=== PATIENT | female | born 2000 | race Caucasian/White ===

== ENCOUNTER 2022-05-22 14:33 | Outpatient (CLI) | payer OTHER, SELFPAY ==
[2022-05-22 22:06] LABS: Aspartate Amino Transferase* 42 U/L (12-35); Bilirubin Direct* 0.3 mg/dL (0.0-0.5); Bilirubin Total* 0.5 mg/dL (0.1-1.5); Total Protein* 8.4 g/dL (6.0-8.3)
[2022-05-22 22:07] LABS: Alanine Aminotransferase* 33 U/L (4-35); Alkaline Phosphatase* 62 U/L (40-150); Lipase* 86 U/L (23-300)
[2022-05-22 22:12] LABS: HCG Qualitative Serum* Negative (Negative)
== END 2022-05-22 14:34 | disposition home or self-care (01) ==
PROVIDERS: Visit Provider Registered Nurse
DX: R10.9 Unspecified abdominal pain (principal)
CPT/HCPCS: 80076; 83690; 84703

== ENCOUNTER 2022-07-02 13:04 | Outpatient (CLI) | payer OTHER, SELFPAY ==
--- NOTE | 2022-07-02 13:00 | CRLHL7_ITS ---
For Patients: As a result of the Cures Act, medical imaging exams and procedure reports are released immediately into your electronic medical record. You may view this report before your referring provider. If you have questions, please contact your health care provider. INDICATION: First trimester scan, establish dates. COMPARISON: None. TECHNIQUE: Real-time velazquez-scale imaging of the pelvis was performed. FINDINGS: Sonographic imaging demonstrates a single living intrauterine gestation. The embryo demonstrates a regular cardiac rate measuring 174 beats per minute. The embryo`s crown-rump length measurement of 2.3 cm corresponds to a gestational age of 9 weeks 0 days with a sonographic due date of 02/04/2023. There is a normal-appearing yolk sac. There are no gross abnormalities noted within the embryo at this early state of development. The gestational sac has a normal appearance. There is no evidence of a perigestational hemorrhage. The amount of fluid within the sac appears appropriate for gestational age. The cervix is closed. The myometrium appears normal. The ovaries are of normal size. Corpus luteal cyst left ovary. There are no suspicious fluid collections noted in the cul-de-sac. IMPRESSION: Normal first trimester OB ultrasound exam. Gestational age calculated at 9 weeks and 0 days with a sonographic due date of 02/04/2023. Dictated by Good Weeks MD @ 07/03/2022 1:28:05 PM (Electronically Signed)
== END 2022-07-02 13:05 | disposition home or self-care (01) ==
LOC: US 13:05
PROVIDERS: PCP Registered Nurse; Visit Provider Physician Assistant
DX: Z34.91 Encounter for supervision of normal pregnancy, unspecified, first trimester (principal); Z3A.08 8 weeks gestation of pregnancy
CPT/HCPCS: 76801; 84443; 86592; 86703; 86762; 86787; 86803; 86850; 86900; 86901; 87086; 87340; 87491; 87591

== ENCOUNTER 2022-07-02 13:28 | Outpatient (CLI) | payer OTHER, SELFPAY ==
[2022-07-02 19:04] LABS: Chlamydia DNA Amplified* NOT DETECTED (No Detected); GC DNA Amplified* NOT DETECTED (No Detected)
== END 2022-07-02 13:29 | disposition home or self-care (01) ==
PROVIDERS: PCP Registered Nurse; Visit Provider Physician Assistant
DX: Z34.91 Encounter for supervision of normal pregnancy, unspecified, first trimester (principal); Z3A.09 9 weeks gestation of pregnancy
CPT/HCPCS: 84443; 86592; 86703; 86762; 86787; 86803; 86850; 86900; 86901; 87086; 87340; 87491; 87591

== ENCOUNTER 2022-08-15 16:16 | Emergency (ER) | payer OTHER, SELFPAY ==
[2022-08-15 16:22] VITALS: BP 109/71; PULSE 92; RESP 20; TEMP 35.9; O2SAT 100; BMI 31.6
--- NOTE | 2022-08-15 16:41 | ED_ITS ---
HPI - General Adult General Chief complaint: Headache/Migraine Stated complaint: Migraine, chest pain Time Seen by Provider: 08/15/22 16:24 History of Present Illness HPI narrative: Patient is a pleasant 22 white female who is about 15 weeks estimated gestational age . She ate with her at a [employer] last night went home developed a headache. She typically does not get migraines but has had them in the past several years ago. She has had mild photophobia mild [place] pain she also says she has some tingly hands tingly arms and she told the nurse she had chest pain she denied that to me denies any leg swelling or edema bleeding or clotting problems. She reports her has been going fairly well Related Data Home Medications Medication Instructions Recorded Confirmed calcium phosphate-vitamin D3 250 1 tab PO DAILY 07/30/22 08/15/22 mg calcium-250 unit chewable tablet ferrous gluconate 240 mg (27 mg 240 mg PO QDAY 07/30/22 08/15/22 iron) tablet (Ferate) magnesium 250 mg tablet 250 mg PO QDAY 07/30/22 08/15/22 prenat.vits,lino,[id number] 1 tab PO QDAY 07/30/22 08/15/22 Previous Rx's Medication Instructions Recorded escitalopram oxalate 10 mg tablet See Rx Instructions .Route 05/15/22 .COMPLEX #90 tabs Allergies Allergy/AdvReac Type Severity Reaction Status Date / Time No Known Drug Allergies Allergy Verified 07/30/22 08:57 Review of Systems Status of ROS: Reports: 6 or more systems reviewed and unremarkable except as noted in History and below PFSH PFS Medical History Constipation ?K59.00 - Constipation, unspecified (ICD-10) KEYSHAWN (generalized anxiety disorder) ?F41.1 - Generalized anxiety disorder (ICD-10) Idiopathic scoliosis (12/04/12) ?M41.20 - Other idiopathic scoliosis, site unspecified (ICD-10) Family History Mother PCOS (polycystic ovarian syndrome) Anxiety Dyslexia Other Thyroid disease Social History Narrative: . teaching assistant. Nonsmoker Smoking Status: Never smoker Do you use any of these nicotine containing products: None Second hand tobacco smoke exposure: No How often do you have a drink containing alcohol: never AUDIT-C Alcohol total score: 0 Non-prescribed substance use: denies use Little interest or pleasure in doing things: not at all Feeling down, depressed, or hopeless: not at all Exam Narrative: Exam Narrative: Objective: In general no apparent distress alert orient x3 noncyanotic no accessory muscles of respiration use no difficulty breathing talks in full and unlabored sentences Vital signs unremarkable O2 sat 100% on room air HEENT unremarkable no facial asymmetry mouth clear well hydrated neck is supple chest is clear no rales or wheezing heart rhythm regular heart murmur abdomen benign soft nontender extremities are no edema neurologic nonfocal. Patient denies any vaginal bleeding or contractions or cramping Const: Vital Signs, click to edit/add: Vital Signs - 24 hr 08/15/22 16:22 Temperature 96.7 F L Pulse Rate [Pulse Oximeter] 92 Respiratory Rate 20 Blood Pressure [Ri ght Upper Arm] 109/71 Pulse Oximetry 100 Oxygen Delivery Me thod Room Air Course Vital Signs Vital signs: Initial Vital Signs Temperature 96.7 F L 08/15/22 16:22 Temperature Source Temporal Artery Scan 08/15/22 16:22 Pulse Rate 92 08/15/22 16:22 Respiratory Rate 20 08/15/22 16:22 Blood Pressure 109/71 08/15/22 16:22 Blood Pressure Mean 83 08/15/22 16:22 Blood Pressure Position Sitting 08/15/22 16:22 Pulse Oximetry 100 08/15/22 16:22 Oxygen Delivery Method Room Air 08/15/22 16:22 Vital Signs Temperature 96.7 F L 08/15/22 16:22 Pulse Rate 92 08/15/22 16:22 Respiratory Rate 20 08/15/22 16:22 Blood Pressure 109/71 08/15/22 16:22 Pulse Oximetry 100 08/15/22 16:22 Oxygen Delivery Method Room Air 08/15/22 16:22 Temperature 96.7 F L 08/15/22 16:22 Pulse Rate 92 08/15/22 16:22 Respiratory Rate 20 08/15/22 16:22 Blood Pressure 109/71 08/15/22 16:22 Pulse Oximetry 100 08/15/22 16:22 Oxygen Delivery Method Room Air 08/15/22 16:22 Medical Decision Making [facility] Narrative Medical decision making narrative: 22-year-old white female but 15 weeks estimated gestational age with migrainous type headache. He patient does have a history of similar type headaches. I t hink at this point she has taken some Tylenol, would use some IV hydration with saline, she has had some mild nausea will give her Zofran 4 mg IV. Will check laboratory studies, and disposition pending findings or clinical response. She had her asthma comfortable plan at this point Addendum: The patient's CBC shows a normal white count hemoglobin 11.3 platelet count is [id number] her LFTs electrolytes are pending. She feels much better with the IV fluid and Zofran. She got most of a L. She reports her headache is better nausea is better. At this point a letter go home will review her labs as they return. Her blood pressure is as mentioned 109/71. Update Dr. Lynch in the next couple of days as conditions dictate, return to ED sooner problems or concerns. Lab Data Labs: Lab Results 08/15/22 Range/Units 17:20 WBC 9.48 (4.50-11.00) K/uL RBC 4.31 (4.00-5.20) m/uL Hgb 11.3 L (12.0-16.0) gm/dL Hct 34.0 (33.0-51.0) % MCV 79 L (80-100) fL MCH 26 (26-34) pg MCHC 33 (32-36) gm/dL RDW Coeff of Nelly 14.1 (11.5-15.5) % Plt Count 285 (140-440) K/uL Neut % (Auto) 78.0 H (42.0-72.0) % Lymph % (Auto) 14.8 L (20-44) % Whitfield % (Auto) 6.3 (0.0-11.0) % Eos % (Auto) 0.3 (0.0-7.0) % Baso % (Auto) 0.1 (0.0-3.0) % Neut # (Auto) 7.40 H (1.7-7.0) K/uL Lymph # (Auto) 1.40 (0.90-2.90) K/uL Whitfield # (Auto) 0.60 (0.00-0.90) K/UL Eos # (Auto) 0.03 (0.00-0.50) K/uL Baso # (Auto) 0.01 (0.00-0.30) K/uL Sodium 134 L (135-149) mmol/L Potassium 3.4 L (3.6-5.1) mmol/L Chloride 104 (96-114) mmol/L Carbon Dioxide 21 (20-32) mmol/L BUN 6 (5-24) mg/dL Creatinine 0.4 L (0.5-1.5) mg/dL Estimated Creat Clear 196.83 Estimated GFR 143 ml/min Glucose 85 (60-115) mg/dL Calcium 9.2 (8.4-10.6) mg/dL Total Bilirubin 0.3 (0.1-1.5) mg/dL Direct Bilirubin 0.1 (0.0-0.5) mg/dL AST 24 (12-35) U/L ALT 25 (4-35) U/L Alkaline Phosphatase 54 (40-150) U/L Total Protein 7.6 (6.0-8.3) g/dL Albumin 4.2 (3.3-5.0) g/dL Discharge Plan Discharge Clinical Impression: Migraine, Patient Disposition: Home w/ Parent or Adult Condition: Improved Additional Instructions: Rest, light activity, fluids, continue home medications, update OB tomorrow. Return to ED sooner problems concerns worsening. Activity Level: Light activity Discharge Diet: Regular Prescriptions: No Action prenat.vits,lino,bax-krux-nywhq Tablet 1 tab PO QDAY ferrous gluconate [Ferate] 240 mg (27 mg iron) tablet 240 mg PO QDAY magnesium 250 mg tablet 250 mg PO QDAY calcium phosphate-vitamin D3 250 mg calcium- 250 unit tablet,chewable 1 tab PO DAILY escitalopram oxalate 10 mg tablet See Rx Instructions .ROUTE .COMPLEX Qty: 90 0RF Dose Instruction: TAKE 1 TABLET DAILY Rx Instructions: TAKE 1 TABLET DAILY. Due for appointment in June for further refills Follow Up/Referrals: Sylvie Gupta [employer] [Staff Physician] - Stand Alone Forms: MyHealth Info Instructions
[2022-08-15] MEDS: 0.9 % SODIUM CHLORIDE 1000 ml 1,000 ML 6000 ML IV (17:23)
[2022-08-15] MEDS: ONDANSETRON 2 MG/ML inj 4 MG IVP (17:23)
[2022-08-15 17:37] LABS: Basophils Absolute Auto 0.01 K/uL (0.00-0.30); Basophils Percent Auto 0.1 % (0.0-3.0); Eosinophils Absolute Auto 0.03 K/uL (0.00-0.50); Eosinophils Percent Auto 0.3 % (0.0-7.0); Hemoglobin* 11.3 gm/dL (12.0-16.0); Immature Granulocytes Abs Auto 0.05 K/uL (0.00-0.30); Immature Granulocytes Pct Auto 0.5 %; Lymphocytes Percent Auto 14.8 % (20-44); Mean Corpuscular HGB Conc 33 gm/dL (32-36); Mean Corpuscular Hemoglobin 26 pg (26-34); Mean Corpuscular Volume 79 fL (80-100); Monocytes Percent Auto 6.3 % (0.0-11.0); Platelet Count* 285 K/uL (140-440); RDW Coefficient of Variation % 14.1 % (11.5-15.5); Red Blood Count 4.31 m/uL (4.00-5.20); White Blood Count* 9.48 K/uL (4.50-11.00)
[2022-08-15 17:46] LABS: Slide Review Reflex No
--- NOTE | 2022-08-15 17:47 | ED.NURSE ---
Nausea improved, pt given crackers
[2022-08-15 17:51] LABS: Albumin* 4.2 g/dL (3.3-5.0)
[2022-08-15 17:52] LABS: Chloride* 104 mmol/L (96-114); Potassium* 3.4 mmol/L (3.6-5.1); Sodium* 134 mmol/L (135-149)
[2022-08-15 17:54] LABS: Aspartate Amino Transferase* 24 U/L (12-35); Bilirubin Direct* 0.1 mg/dL (0.0-0.5); Bilirubin Total* 0.3 mg/dL (0.1-1.5); Total Protein* 7.6 g/dL (6.0-8.3)
[2022-08-15 17:55] LABS: Alanine Aminotransferase* 25 U/L (4-35); Alkaline Phosphatase* 54 U/L (40-150); Blood Urea Nitrogen* 6 mg/dL (5-24); Carbon Dioxide* 21 mmol/L (20-32); Creatinine* 0.4 mg/dL (0.5-1.5); Est. Creatinine Clearance* 196.83; Estimated Glomerular Filt Rate 143 ml/min
[2022-08-15 17:56] LABS: Calcium* 9.2 mg/dL (8.4-10.6); Glucose* 85 mg/dL (60-115)
== END 2022-08-15 18:10 | disposition home or self-care (01) ==
LOC: ED 17:38
PROVIDERS: Emergency Provider Family Medicine; PCP Physician Assistant Medical
DX: G43.909 Migraine, unspecified, not intractable, without status migrainosus (principal); Z3A.15 15 weeks gestation of pregnancy
CPT/HCPCS: 36415; 80048; 80076; 85025; 96374; 99284; J2405; J7030

== ENCOUNTER 2022-11-15 08:12 | Outpatient (CLI) | payer OTHER, SELFPAY | END 2022-11-15 08:13 | disposition home or self-care (01) | LOC: NFLDREF 11-17 18:38 | PROVIDERS: PCP Physician Assistant Medical; Referring Provider Physician Assistant Medical; Visit Provider Obstetrics & Gynecology | DX: Z34.93 Encounter for supervision of normal pregnancy, unspecified, third trimester (principal); Z3A.28 28 weeks gestation of pregnancy | CPT/HCPCS: 86592 ==

== ENCOUNTER 2022-12-25 07:30 | Outpatient (RCR) | payer OTHER, SELFPAY | END 2023-04-24 23:59 | disposition home or self-care (01) | PROVIDERS: PCP Physician Assistant Medical; Visit Provider Obstetrics & Gynecology | DX: O26.893 Other specified pregnancy related conditions, third trimester (principal); M25.559 Pain in unspecified hip; M54.50 Low back pain, unspecified; Z51.89 Encounter for other specified aftercare | CPT/HCPCS: 97110; 97140; 97162 ==

== ENCOUNTER 2023-01-09 10:02 | Outpatient (CLI) | payer OTHER, SELFPAY ==
[2023-01-09] VITALS (21 sets, daily range): BP systolic 122–134; BP diastolic 72–88; PULSE 74–101; RESP 16; TEMP 36.9; O2SAT 97–98
--- NOTE | 2023-01-09 11:35 | US_ITS ---
Patient: IZABELLA MASON Facility:?[facility] Patient ID:?[id number] Site Patient ID:?[id number]. Site :?[id number] Study:?US-OB Pelvis LIMITED-01/09/2023 12:09:55 PM Ordering Physician:?DR MCCARTHY Final Report: INDICATION: Third trimester scan, evaluate growth. COMPARISON: 09/25/2022 TECHNIQUE: Real time velazquez scale imaging of the fetus was performed. FINDINGS: Sonographic imaging demonstrates a single living intrauterine gestation. Fetus demonstrates a regular cardiac rate of 139 beats per minute. Fetus has a vertex position. The placenta lies anterior. Amniotic fluid volume appears normal and there is a single deepest vertical pocket: 7.5 cm. The estimated weight is 3421gm which lies at the 96th %. On the prior OB ultrasound exam dated 09/25/2022 the estimated weight was at the 88th%. BPD 90th percentile. HC 78th percentile. AC greater than 97th percentile. FL 87th percentile. The HC/AC ratio measures at 0.97 range (0.90-1.06). IMPRESSION: Sonographic gestational age 38 weeks 0 days and a sonographic due date 01/23/2023. Sonographic age 2 weeks ahead of the clinical age. Estimated weight 96th percentile. Abdominal circumference greater than 97th percentile. Dictated by Good Weeks MD @ 01/09/2023 12:33:41 PM Signed by:?Good Weeks MD @01/09/2023 12:33:41 PM (Electronic Signature)
[2023-01-09 11:42] LABS: Total Protein Urine 7 mg/dL
[2023-01-09 11:44] LABS: Creatinine Urine 222.8 mg/dL
[2023-01-09 11:46] LABS: Hematocrit 33.4 % (33.0-51.0); Hemoglobin* 10.9 gm/dL (12.0-16.0); Mean Corpuscular HGB Conc 33 gm/dL (32-36); Mean Corpuscular Hemoglobin 25 pg (26-34); Mean Corpuscular Volume 77 fL (80-100); Platelet Count* 197 K/uL (140-440); Red Blood Count 4.32 m/uL (4.00-5.20); White Blood Count* 7.18 K/uL (4.50-11.00)
[2023-01-09 11:47] LABS: Slide Review Reflex No
[2023-01-09 12:03] LABS: Alanine Aminotransferase* 23 U/L (4-35); Aspartate Amino Transferase* 31 U/L (12-35); Blood Urea Nitrogen* 10 mg/dL (5-24); Creatinine* 0.5 mg/dL (0.5-1.5); Estimated Glomerular Filt Rate 135 ml/min
--- NOTE | 2023-01-09 14:46 | PC.OBNST ---
NST Note NST Note Start: 01/09/23 10:11 Freq: ONCE Status: Active Protocol: Document 01/09/23 14:43 MMB (Rec: 01/09/23 14:45 MMB [id number]) NST Note 1 Para (# of births) 0 EDC 02/06/23 Gestational Age In Weeks & Days 36 Weeks & 0 Days Patient Presented with Complaint(s) of Headache,Other Other Complaints Generalized swelling, upper abdominal discomfort/pain Reactive Yes Appropriate for Gestational Age Yes RN Alverto Bajwa RN Date 01/09/23 Reactive Yes Appropriate for Gestational Age Yes NELSON Rinaldi RN Date 01/09/23 OB NST charge Yes Complete NST Note via Write Note Yes The provider's electronic signature indicates the NST is reactive/appropriate for gestational age. *Note to provider: If an addendum is required, open the patient's chart and click on the note under the Nurse/Allied Health tab.
== END 2023-01-09 13:30 | disposition home or self-care (01) ==
LOC: OB OUT 10:02 → OB 10:04
PROVIDERS: PCP Physician Assistant Medical; Visit Provider Obstetrics & Gynecology
DX: O26.893 Other specified pregnancy related conditions, third trimester (principal); R51.9 Headache, unspecified; Z3A.36 36 weeks gestation of pregnancy
CPT/HCPCS: 36415; 59025; 76815; 82565; 82570; 84156; 84450; 84460; 84520; 85027; 99213

== ENCOUNTER 2023-01-11 11:42 | Outpatient (CLI) | payer OTHER, SELFPAY | END 2023-01-11 11:43 | disposition home or self-care (01) | PROVIDERS: PCP Physician Assistant Medical; Visit Provider Obstetrics & Gynecology | DX: O16.3 Unspecified maternal hypertension, third trimester (principal); Z3A.36 36 weeks gestation of pregnancy | CPT/HCPCS: 82565; 82570; 84156; 84450; 84460; 84520; 87081; 87653 ==

== ENCOUNTER 2023-01-14 13:51 | Outpatient (CLI) | payer OTHER, SELFPAY ==
--- NOTE | 2023-01-14 14:00 | CRLHL7_ITS ---
For Patients: As a result of the Century Cures Act, medical imaging exams and procedure reports are released immediately into your electronic medical record. You may view this report before your referring provider. If you have questions, please contact your health care provider. INDICATION: Gestational hypertension COMPARISON: none TECHNIQUE: Real time velazquez scale imaging of the fetus was performed. Without non-stress testing. FINDINGS: Sonographic imaging demonstrates a single living intrauterine gestation. Fetus demonstrates a regular cardiac rate of 141 beats per minute. Fetus has a vertex position. The amniotic fluid volume appears normal and there is a single deepest pocket measurement of 4.2 cm. The fetus was active and demonstrated normal breathing movements. There was normal flexion and extension of the trunk and extremities. IMPRESSION: Normal biophysical profile score of 8 out of 8. Dictated by Good Weeks MD @ 01/15/2023 6:03:02 AM (Electronically Signed)
== END 2023-01-14 13:52 | disposition home or self-care (01) ==
LOC: US 13:52
PROVIDERS: PCP Physician Assistant Medical; Visit Provider Obstetrics & Gynecology
DX: O16.9 Unspecified maternal hypertension, unspecified trimester (principal)
CPT/HCPCS: 76819

== ENCOUNTER 2023-01-15 15:49 | Inpatient (IN) | payer OTHER, SELFPAY ==
[2023-01-15] VITALS (7 sets, daily range): BP systolic 109–141; BP diastolic 60–84; PULSE 78–104; RESP 16; TEMP 36.6–37; O2SAT 99; BMI 38.1
--- NOTE | 2023-01-15 16:59 | P.LDBA_ITS ---
Subjective History of Present Illness Narrative: Patient is being admitted to Labor and Delivery for cervical ripening / IOL. She is a 22 year old at 36 6/7 weeks gestation. Her full history and physical was dictated by Dr. Saldana on 01/14/2023. Please see this for details. Specific Issues/Plans G1 1. Anxiety, doing well on escitalopram 10 mg * Prescription refilled 10/24/2022 2. Obesity, BMI 31.2 Hemoglobin A1c: Recommend 81 mg of aspirin starting at 12 weeks 3. Scoliosis 4. hgb 11.7 at NOB, increase iron rich foods 5. History of right hip flexor injury in athletics. Right hip pain. 6. Gestational HTN diagnosed at 36 weeks. IOL planned for 37 0/7 weeks. Booking form submitted, consent obtained on 01/14. Normal HELLP labs 01/11/23. Twice weekly testing until delivery. BMZ #1 given in clinic on 01/14, second dose upon presentation for cervical ripening on 01/15 7. Suspected macrosomia US on 01/09/23: cephalic, SDP 7.5, EFW 96%, AC >97%. 8. GBS positive. Ampicillin in labor. Flu shot: Declined COVID: Risks and recommendations discussed, not vaccinated Tdap: 11/30 OB - Problem Based A/P Additional Plan (1) Gestational hypertension: Status: Acute Plan: Cervical ripening with Cook catheter. Using aseptic technique, Cook catheters inserted through the cervix into the lower uterine segment. The intrauterine and intracervical balloons were inflated to 60 mL. [] Begin Pitocin per low-dose protocol at 9:00 p.m.. (2) macrosomia: Status: Acute Plan: EFW 3421 g on 01/09/2023. AC greater than 97%. I will avoid operative vaginal delivery for indication of arrest of decent. (3) Positive GBS test: Status: Acute Plan: Begin ampicillin for GBS prophylaxis at initiation of Pitocin. (4) Anemia complicating : Status: Acute Plan: Hemoglobin 10.0 at admission. I plan to be vigilant for management of excessive blood loss in the setting of vaginal for . Delivery/Labor/Induction Plan Plan: induction Induction method: Intracervical balloon catheter OB Result Labs Labs: Labs today: Hemoglobin 10.0, hematocrit 30.9, platelets 201 BUN 16, creatinine 0.8 AST 27, ALT 22 Labs GBS Status: positive OB Exam Physical Exam Vital signs: Temp Pulse BP Pulse Ox 98.4 F 93 126/84 99 01/15/23 16:13 01/15/23 16:13 01/15/23 16:13 01/15/23 16:09 Narrative: Physical exam: General: No acute distress Psych: Alert and oriented x3, full affect HEENT: Normocephalic, atraumatic Heart: Regular rate and rhythm, no murmur rub or gallop Lungs: Clear to auscultation bilaterally Abdomen: Soft, nontender, gravid, cephalic lie, EFW 8 lb Lower extremities: No edema or erythema Pelvic exam: Cervix 1 cm,-3 station, 80% effaced, posterior, soft tracing: Baseline 135 / accels present / no decels / moderate variability.
[2023-01-15] MEDS: BETAMETHASONE SOD PHOS/ACETATE 6 MG/ML ML 12 MG IM (17:10)
[2023-01-15 17:31] LABS: Basophils Absolute Auto 0.01 K/uL (0.00-0.30); Basophils Percent Auto 0.1 % (0.0-3.0); Eosinophils Absolute Auto 0.01 K/uL (0.00-0.50); Eosinophils Percent Auto 0.1 % (0.0-7.0); Hematocrit 30.9 % (33.0-51.0); Immature Granulocytes Abs Auto 0.14 K/uL (0.00-0.30); Immature Granulocytes Pct Auto 1.4 %; Lymphocytes Percent Auto 15.1 % (20-44); Mean Corpuscular HGB Conc 32 gm/dL (32-36); Mean Corpuscular Hemoglobin 25 pg (26-34); Mean Corpuscular Volume 78 fL (80-100); Monocytes Percent Auto 9.6 % (0.0-11.0); Neutrophils Percent Auto 73.7 % (42.0-72.0); Platelet Count* 201 K/uL (140-440); RDW Coefficient of Variation % 15.3 % (11.5-15.5); Red Blood Count 3.97 m/uL (4.00-5.20); White Blood Count* 9.85 K/uL (4.50-11.00)
[2023-01-15 17:36] LABS: Slide Review Reflex No
[2023-01-15 17:45] LABS: Creatinine* 0.8 mg/dL (0.5-1.5); Est. Creatinine Clearance* 98.41; Estimated Glomerular Filt Rate 106 ml/min
[2023-01-15 17:46] LABS: Alanine Aminotransferase* 22 U/L (4-35); Aspartate Amino Transferase* 27 U/L (12-35); Blood Urea Nitrogen* 16 mg/dL (5-24)
[2023-01-15 18:05] LABS: INR 1.01 (0.91-1.10); Partial Thromboplastin Time* 25 Seconds (23-33); Prothrombin Time 13.9 Seconds
[2023-01-15 18:06] LABS: Fibrinogen* 457 mg/dL (200-450)
[2023-01-15] MEDS: hydrOXYzine pamoate 25 MG CAPSULE 100 MG PO (19:07)
[2023-01-15] MEDS: MORPHINE 10 MG/ML inj IM (19:07)
[2023-01-15] MEDS: LACTATED RINGERS 1000 ML 1,000 ML 125 ML IV (21:07)
[2023-01-15] MEDS: OXYTOCIN 30 unit/500 ML in NS 30 UNIT/500 ML BAG IVPB (21:12)
[2023-01-15] MEDS: AMPICILLIN 2 GM in 0.9 % SODIUM CHLORIDE Mini-bag 100 ML IVPB (21:15)
[2023-01-16] VITALS (79 sets, daily range): BP systolic 109–167; BP diastolic 47–104; PULSE 75–116; RESP 16–20; TEMP 36.8–38.1; O2SAT 95–100
[2023-01-16] MEDS: AMPICILLIN 1 GM in 0.9 % SODIUM CHLORIDE Mini-bag 100 ML IVPB ×4 (01:03→13:22)
[2023-01-16] MEDS: LACTATED RINGERS 1000 ML 1,000 ML 125 ML IV (06:45)
--- NOTE | 2023-01-16 07:23 | PM.OBPNL ---
Subjective Time Seen by Provider: : Date Seen: 01/16/23 Narrative: Okay Objective Vital Signs: Last Vital Signs Temp 98.4 F 01/16/23 05:02 Pulse 93 01/16/23 05:54 Resp 16 01/16/23 01:03 BP 113/61 01/16/23 05:54 Pulse Ox 99 01/15/23 16:09 Pelvic Exam Dilation (cm): 4-5 Effacement (%): 90 Station: -1 Contractions Monitor mode: External Contraction pattern: Regular Contraction intensity: Moderate Pitocin Rate (mU/min): 5 Assessment Assessment: induction ongoing Station: -1 Amniotic Membrane Status: AROM Status: Category l Heart Rate Baseline: 130 Mat Man Variability: Moderate (6-25) Monitor Accelerations: Present Monitor Decelerations: None Plan Plan: IOL in the setting of preeclampsia w/o severe features, s/p cook catheter last night and oxytocin overnight. This morning cervix favorable and head well engaged for AROM and this was completed, patient tolerated procedure well. Will continue current management with oxytocin titration, plan to re check cervix in 4-5 hours unless any significant clinical changes prior to that time. Blood pressures have remained normal, not on severity no PRINCIPAL SYSTEMS ARCHITECT irritability symptoms. Will only repeat lab work if there is concerns for severity features. GBS positive has received antibiotic prophylaxis since the start of Oxytocin last night. Continue with continuous monitoring.
[2023-01-16] MEDS: fentaNYL 100 MCG/2 ML inj IVP (09:53)
[2023-01-16] MEDS: LIDOCAINE 2% (PF) 5 ML VIAL EPIDURAL (11:14)
[2023-01-16] MEDS: ROPIVACAINE 0.2% 100 ml 100 ML 12 MG EPIDURAL (11:14)
--- NOTE | 2023-01-16 11:20 | PM.ANBPRC ---
[facility] Medical History Idiopathic scoliosis (12/04/12) ?M41.20 - Other idiopathic scoliosis, site unspecified (ICD-10) Constipation ?K59.00 - Constipation, unspecified (ICD-10) KEYSHAWN (generalized anxiety disorder) ?F41.1 - Generalized anxiety disorder (ICD-10) Family History Mother PCOS (polycystic ovarian syndrome) Anxiety Dyslexia Other Thyroid disease Social History Narrative: . logistics assistant. Nonsmoker What is your current living situation?: I presently have a place to live Problems where you live: no known problems In the past 12 months, utilities in danger of being shut off: no In past 12 months, lack of transportation kept you from medical appts, meetings, work, or getting things needed for daily living: no In the past 12 mos, have been you worried that your food would run out before you had money to buy more?: never true In the past 12 mos, the food you bought just didn't last and you didn't have money to buy more?: never true Smoking Status: Never smoker Do you use any of these nicotine containing products: None Second hand tobacco smoke exposure: No How often do you have a drink containing alcohol: never AUDIT-C Alcohol total score: 0 Non-prescribed substance use: denies use How often does anyone, including family, friends and others, physically hurt you: never How often does anyone, including family, friends and others, insult or talk down to you: never How often does anyone, including family, friends and others, threaten you with harm: never How often does anyone, including family, friends and others, scream or curse at you: never Little interest or pleasure in doing things: not at all Feeling down, depressed, or hopeless: not at all Meds Home Medications and Allergies Home Medications Medication Instructions Recorded Confirmed Type prenat.vits,lino,yaf-ajwv-nhygo 1 tab PO QDAY 07/30/22 01/15/23 History aspirin 81 mg tablet,delayed 81 mg PO DAILY 01/09/23 01/15/23 History release (Adult Low Dose Aspirin) Allergies Allergy/AdvReac Type Severity Reaction Status Date / Time No Known Drug Allergies Allergy Verified 01/14/23 14:33 Results Labs Labs: Laboratory Results - last 24 hr 01/15/23 17:06 WBC 9.85 RBC 3.97 L Hgb 10.0 L Hct 30.9 L MCV 78 L MCH 25 L MCHC 32 RDW Coeff of Nelly 15.3 Plt Count 201 Neut % (Auto) 73.7 H Lymph % (Auto) 15.1 L Mcnairy % (Auto) 9.6 Eos % (Auto) 0.1 Baso % (Auto) 0.1 Neut # (Auto) 7.30 H Lymph # (Auto) 1.50 [place]nairy # (Auto) 0.90 Eos # (Auto) 0.01 Baso # (Auto) 0.01 Abs Immat Gran (auto) 0.14 Imm/Tot Granulo (auto) 1.4 INR 1.01 APTT 25 Fibrinogen 457 H BUN 16 Creatinine 0.8 Estimated Creat Clear 98.41 Estimated GFR 106 AST 27 ALT 22 Blood Type A Positive Antibody Screen NEGATIVE Vital Signs Vital Signs: Last Vital Signs Temp 98.2 F 01/16/23 08:27 Pulse 87 01/16/23 11:19 Resp 16 01/16/23 08:27 BP 150/72 H 01/16/23 11:19 Pulse Ox 99 01/16/23 11:18 Weight: 103.929 kg Height: 165.1 cm Anesthesia Procedures Epidural Insertion Patient Location: OB Start Time: 10:55 Stop Time: 11:25 Start Date: 01/16/23 Stop Date: 01/16/23 Reason for Block: primary anesthetic Patient Position: sitting Performed By: Farzad Ray Preanesthetic Checklist: IV checked, risks and benefits discussed, surgical consent, monitors and equipment checked, pre-op evaluation, timeout performed and anesthesia consent Prep: chlorhexidine gluconate Monitoring: blood pressure monitoring, ruby on rails web developer, continuous pulse oximetry and heart rate Approach: midline Vertebral Space: lumbar (1-5) Needle Type: Tuohy needle Injection Technique: continuous catheter (catheter) Needle gauge: 17 Needle Length (cm): 10 cm Needle Insertion Depth (cm): 5 Catheter Gauge: 19 Catheter Type: multi-orifice Catheter at skin depth (cm): 10 Test Dose Result: negative and lidocaine 1.5% with epinephrine 1 to 200,000
--- NOTE | 2023-01-16 15:37 | PM.OBPNL ---
Subjective Time Seen by Provider: 15:37 Date Seen: 01/16/23 Narrative: Okay Objective Vital Signs: Last Vital Signs Temp 98.2 F 01/16/23 08:27 Pulse 83 01/16/23 15:34 Resp 16 01/16/23 08:27 BP 115/64 01/16/23 15:34 Pulse Ox 98 01/16/23 14:22 Pelvic Exam Dilation (cm): 10 Effacement (%): 100 Station: +1 Contractions Monitor mode: External Contraction pattern: Regular Contraction intensity: Strong/Firm Pitocin Rate (mU/min): 7 Assessment Assessment: induction ongoing Station: +1 (Caput at +2,+3) Amniotic Membrane Status: AROM Status: Category ll Heart Rate Baseline: 140 Assisted Variability: Moderate (6-25) Monitor Accelerations: Present Monitor Decelerations: Variable (with contractions) Labor Progress: Normal, has been pushing for about 2 hours now, just checked positioning, baby seems to be OP. Encouraged closed knee pushing for a while. Maternal Status: Stable, did have some elevated blood pressures prior to epidural placement, had 1 severely elevated blood pressure that was not persistent 15 min apart. Not treated. Will continue close monitoring. Plan Plan: Continue current management.
--- NOTE | 2023-01-16 17:08 | PM.OBPNL ---
Subjective Time Seen by Provider: 17:08 Date Seen: 01/16/23 Narrative: Okay Objective Vital Signs: Last Vital Signs Temp 99.4 F 01/16/23 17:06 Pulse 86 01/16/23 17:06 Resp 16 01/16/23 17:06 BP 136/86 01/16/23 17:02 Pulse Ox 98 01/16/23 14:22 Pelvic Exam Dilation (cm): 10 Effacement (%): 100 Station: +1 Contractions Monitor mode: External Contraction pattern: Regular Contraction intensity: Strong/Firm Pitocin Rate (mU/min): 7 Assessment Station: +1 (Caput at +2,+3) Amniotic Membrane Status: AROM Status: Category ll Heart Rate Baseline: 140 Darklight Inspector Variability: Moderate (6-25) Monitor Accelerations: Present Monitor Decelerations: Variable (with contractions) Labor Progress: station the same as about 1 hour ago when I checked her. Bedside US utilized and presentation is LOT. Caput at +2. Patient has attempted multiple pushing positions including. Head does not move with attempts at manual rotation. Plan Plan: I have discussed findings with patient and family. In theory we would still have 1 more hour to push, but I am concerned about caput, OT presentation, suspected macrosomia. I recommended to proceed with a delivery. Patient agrees. Discussed how procedure is performed, risks of surgery such as bleeding and needing emergency blood transfusion, risk of infection, damage to nearby organs, blood clots. Discussed interventions to decrease these risks such as prophylactic antibiotics, compression stocking, Lovenox. Discussed usual hospital stay and recovery. Discussed family centered section. Informed consent signed and will proceed with unscheduled delivery.
--- NOTE | 2023-01-16 17:18 | P.OBPRC_ITS ---
Procedure Time Seen by Provider: 19:34 Date of procedure: 01/16/23 Pre-op diagnosis: Preeclampsia w/o severe features, arrest of descent Post-op diagnosis: same Procedure Done: Global Will [facility] bill your pro fee for this procedure?: Yes Blood Loss Measurement Type: QBL (1740mL) Bakri Used: No IV fluids (mL): 900 Urine Output (mL): 200 Surgeon: Justa Prado MD Anesthesia type: Epidural Findings: FINDINGS: Live-born male , Vertex LOT, OP presentation, large caput, Apgars 6 and 9 at 1 and 5 minutes respectively. weight 8 lb 2 oz. Large amount of peritoneal clear fluid. Procedure Name: Primary low transverse section Procedure Description: PROCEDURE: After obtaining informed consent, the patient was taken to the operating room where epidural anesthesia was confirmed to be adequate. She was prepared and draped in the normal sterile fashion in the dorsal supine position with a leftward tilt. A Pfannenstiel skin incision was made with a scalpel about 2 cm above symphysis pubic bone, 8-10 cm in length. This incision was carried down to the underlying layer of fascia with the Bovie and scalpel. The fascia was incised in the midline and the incision extended laterally. The rectus muscles were then in the midline. Bowel noted to be over the lower uterine segment and this was packed away utilizing 2 lap sponges. The Federico O retractor was then placed into the incision. The lower uterine segment was then incised in a transverse fashion with the scalpel. Upon entry into the uterus, large amount of clear amniotic fluid was noted. The uterine incision was extended cephalo caudally with blunt finger fractionation. head found deeply impacted in the pelvis, mostly the large and long caput. I was unable to completely pass my hand around the head to lift it up to incision, I asked for a vaginal hand for assistance. I slowly kept trying to fit my hand in between and was able to lift up the head prior to vaginal hand assistance, baby did turn from LOT to OP. I had to gently turn the head to a ROT position and present the occiput, then with continued fundal pressure the head delivered, followed by the remainder of the body. The cord was doubly clamped and cut, and the infant was handed off the field to warm for evaluation. A segment of umbilical cord was clamped for collection of cord blood gases. The placenta was delivered spontaneously with umbilical cord traction and fundal massage. The uterus was cleared of all clots and debris. The hysterotomy had a small extension towards the left side and this revealed significant bleeding from the uterine vessels. This was managed with continuous sutures of Vicryl 0 in a locking manner, hemostasis improved. The uterine incision was reapproximated in a running locking fashion with a 0 Vicryl suture. A 2nd layer of the same suture was used to imbricate in horizontal fashion. Uterine atony identified and managed as followed: TXA 1g had been given after cord clamp, 1 dose of Hemabate, 800mcg of rectal misoprostol, 30 units of IV Oxytocin, 10 units of IM Oxytocin injected at the uterine fundus. Laps previously placed were removed. The gutters were inspected and cleared of blood clot. All instruments and retractors were removed. There was a segment of omentum identified that looked to have a defect that could be concerning for bowel incarceration and this was utilizing cautery freeing omental tissue. Hemostasis secured. Peritoneum was approximated with Vicryl 3-0. The subfascial tissues were carefully inspected and hemostasis assured. The fascia was reapproximated in a running fashion with a looped 0 Vicryl suture. The subcutaneous tissues were inspected and hemostasis was assured. The subcutaneous fat layer was reapproximated with interrupted sutures of 3-0 Vicryl. The skin was closed in a subcuticular fashion with 4-0 Monocryl. LiquiBand and dressing were applied. The patient tolerated the procedure well. Sponge, lap, needle, and instrument counts were reported as correct x2. The patient was taken to the recovery room, awake, and in stable condition. She did receive 3 grams of IV Ancef and 500mg of Azithromycin preoperatively. I was notified closer to the end of surgery that patient had severely elevated blood pressures, anesthesia was treating these with esmolol as per anesthesia protocol/since this could represent an adrenergic reaction from anesthesia. Will monitor and if during the first hour there are continued severely elevated blood pressure, will treat as severe preeclampsia per protocol. Complications: Hysterotomy extension to the left uterine artery, uterine atony. Condition: stable Disposition: floor OB Delivery Proc Additional Procedures Tubal Ligation at the time of : No Other: No
[2023-01-16] MEDS: AZITHROMYCIN 500 MG in 0.9 % SODIUM CHLORIDE 250 ml 250 ML 255 MG IVPB (17:51)
[2023-01-16] MEDS: CEFAZOLIN 1 GM inj 3 GM IVP (18:17)
[2023-01-16] MEDS: miSOPROStoL 800 MCG/4 TABLET PR (18:45)
[2023-01-16] MEDS: OXYTOCIN 10 UNIT/ML INJ IM (19:00)
[2023-01-16 19:55] LABS: Hematocrit 30.6 % (33.0-51.0); Hemoglobin* 9.7 gm/dL (12.0-16.0); Mean Corpuscular HGB Conc 32 gm/dL (32-36); Mean Corpuscular Hemoglobin 25 pg (26-34); Mean Corpuscular Volume 79 fL (80-100); Platelet Count* 214 K/uL (140-440); Red Blood Count 3.87 m/uL (4.00-5.20); White Blood Count* 16.75 K/uL (4.50-11.00)
[2023-01-16 19:56] LABS: Slide Review Reflex No
--- NOTE | 2023-01-16 20:09 | W.ANESCHARGE ---
Anesthesia Charges Start Date/Time Anesthesia Start Date: 01/16/23 Anesthesia Start Time: 18:03 Stop Date/Time Anesthesia Stop Date: 01/16/23 Anesthesia Stop Time: 19:46 Summary Emergency: PROGRAM MANAGER
[2023-01-16 20:11] LABS: Aspartate Amino Transferase* 54 U/L (12-35); Creatinine* 0.7 mg/dL (0.5-1.5); Est. Creatinine Clearance* 112.47; Estimated Glomerular Filt Rate 125 ml/min
--- NOTE | 2023-01-16 20:11 | W.PM.NB ---
Nerve Block Nerve Block Time Seen by Provider: 19:32 Date Seen: 01/16/23 Type of block requested by surgeon for post-operative analgesia: TAP Side: bilateral Time out performed: Yes Verification of patient name: Yes Verification of date of : Yes Name of person performing procedure: DK reed Continuous monitoring Was continuous monitoring of O2 sat, B/P, monitoring engineer, recorded every 15 minutes?: Yes Procedure Checklist: sterile prep, needles and gloves Ultrasound guided. Images saved: Yes Medications given in 5ml increments after negative aspiration: Marcaine (30 ml total) %: 0.25 mL: 15 Needle gauge: 20 Patient tolerated procedure well: Yes Block Charges Block Charge (with Pro Fee): TAP Bilateral Use of Ultrasound Machine for Block: Yes- US Guidance/pain block
[2023-01-16 20:12] LABS: Blood Urea Nitrogen* 15 mg/dL (5-24); INR 1.01 (0.91-1.10); Prothrombin Time 13.9 Seconds
[2023-01-16 20:13] LABS: Partial Thromboplastin Time* 24 Seconds (23-33)
[2023-01-16] MEDS: LABETALOL HCL 100 MG TABLET 200 MG PO (20:28)
[2023-01-16 20:38] LABS: Alanine Aminotransferase* 39 U/L (4-35)
[2023-01-16 20:43] LABS: Fibrinogen* 375 mg/dL (200-450)
[2023-01-16] MEDS: SODIUM CHLORIDE 0.9 % (FLUSH) 10 ML SYRINGE IVF (20:46)
[2023-01-16] MEDS: KETOROLAC 30 MG/ML inj IVP (20:46)
[2023-01-16] MEDS: ACETAMINOPHEN 500 MG TABLET 1000 MG PO (22:08)
[2023-01-17] VITALS (18 sets, daily range): BP systolic 106–137; BP diastolic 70–88; PULSE 86–98; RESP 16–18; TEMP 36.7–37.2; O2SAT 95–98
[2023-01-17] MEDS: SODIUM CHLORIDE 0.9 % (FLUSH) 10 ML SYRINGE IVF (02:38)
[2023-01-17] MEDS: KETOROLAC 30 MG/ML inj IVP ×3 (02:38→14:13)
[2023-01-17 06:32] LABS: Hematocrit 25.2 % (33.0-51.0); Hemoglobin* 8.2 gm/dL (12.0-16.0); Mean Corpuscular HGB Conc 33 gm/dL (32-36); Mean Corpuscular Hemoglobin 26 pg (26-34); Mean Corpuscular Volume 79 fL (80-100); Platelet Count* 160 K/uL (140-440); Red Blood Count 3.19 m/uL (4.00-5.20); White Blood Count* 14.13 K/uL (4.50-11.00)
[2023-01-17 06:35] LABS: Alanine Aminotransferase* 22 U/L (4-35); Aspartate Amino Transferase* 36 U/L (12-35); Blood Urea Nitrogen* 15 mg/dL (5-24); Creatinine* 0.8 mg/dL (0.5-1.5); Est. Creatinine Clearance* 98.41; Estimated Glomerular Filt Rate 106 ml/min
[2023-01-17 06:43] LABS: Slide Review Reflex No
[2023-01-17] MEDS: FERROUS SULFATE 325 MG TABLET PO (08:10)
[2023-01-17] MEDS: DOCUSATE SODIUM 100 MG CAPSULE PO (08:12)
[2023-01-17] MEDS: FUROSEMIDE 20 MG TABLET PO (08:16)
[2023-01-17] MEDS: ENOXAPARIN 40 MG/0.4 ML INJ SUBCUT (08:51)
[2023-01-17] MEDS: LABETALOL HCL 100 MG TABLET 200 MG PO ×2 (08:52→20:38)
--- NOTE | 2023-01-17 12:35 | P.OBPN_ITS ---
OB - PN:Subj Subjective Date Seen: 01/17/23 Patient comments OB post-: no complaints, pain well controlled, tolerating diet and flatus present [place] status: bottle and doing well feeding status: breast and bottle feeding Narrative: Patient reports feeling well, ambulating without difficulty and no symptoms. She denies headache, blurriness or spots in vision, upper abdominal pain. Denies dizziness, headache, shortness of breath, chest pain. She does note some increased swelling in her feet but not painful. Does note some itching of her legs and would like medication to address OB - PN: Obj Exam Physical Exam: Vital signs: Temp Pulse Resp BP Pulse Ox O2 Del Method 98.2 F 98 16 106/70 98 Room Air 01/17/23 11:43 01/17/23 11:43 01/17/23 11:43 01/17/23 11:43 01/17/23 11:43 01/17/23 11:43 Constitutional: Constitutional: no acute distress Routine Abdominal Exam: Abdominal: Present distended, soft and tenderness Fundus: Present firm Routine Extremities Exam: Extremities: Present pulses intact and pedal edema; Absent tenderness Routine Psychiatric Exam: Psychiatric: Present normal affect and normal thought process Urinary Catheter Management: urether: Cath placed during this visit: yes, but has since been removed by the nurse Reason for continuing: decision to DC catheter Insertion date: 01/16/23 Insertion time: 18:13 Removal date: 01/17/23 Removal time: 04:30 OB - PN: Obj Data Labs Labs: Laboratory Results - last 24 hr 01/16/23 01/17/23 19:49 05:55 WBC 16.75 H 14.13 H RBC 3.87 L 3.19 L Hgb 9.7 L 8.2 L Hct 30.6 L 25.2 L MCV 79 L 79 L MCH 25 L 26 MCHC 32 33 Plt Count 214 160 INR 1.01 APTT 24 Fibrinogen 375 BUN 15 15 Creatinine 0.7 0.8 Estimated Creat Clear 112.47 98.41 Estimated GFR 125 106 AST 54 H 36 H ALT 39 H 22 OB - PN: A/P Delivery Assessment and Plan (1) Gestational hypertension: Problem details: Blood pressures in normal range with labetalol 200 mg twice daily, HELLP labs normal Status: Acute Assessment and Plan: Continue to monitor closely, no further labs at this time. (2) macrosomia: Status: Acute (3) Positive GBS test: Status: Resolved (4) Anemia complicating : Problem details: Asymptomatic Status: Acute Assessment and Plan: Start iron supplementation after bowel movement (5) KEYSHAWN (generalized anxiety disorder): Problem details: Mood stable Status: Chronic Assessment and Plan: No medications at this time, close follow-up (6) Itching due to drug: Problem details: Likely secondary to opioid use for analgesia Status: Acute Assessment and Plan: Start with diphenhydramine, if needed may consider naloxone (7) delivery delivered: Status: Acute Assessment and Plan: Continue routine postoperative care, pain controlled on protocol (8) Obesity: Problem details: Elevated risk for developing the VTE postop Status: Acute Assessment and Plan: Continue enoxaparin prophylaxis until discharge Plan day: 1 Plan: routine care
[2023-01-17] MEDS: diphenhydrAMINE 50 MG/ML inj 12.5 MG IVP (13:04)
[2023-01-17] MEDS: IBUPROFEN 600 MG TABLET PO (20:51)
[2023-01-17] MEDS: SIMETHICONE 80 MG TAB.CHEW PO (20:54)
[2023-01-17] MEDS: ACETAMINOPHEN 500 MG TABLET 1000 MG PO (22:18)
[2023-01-18 00:45] VITALS: BP 120/74; PULSE 84; RESP 16; TEMP 36.6; O2SAT 96
[2023-01-18] MEDS: IBUPROFEN 600 MG TABLET PO ×2 (03:02→09:05)
[2023-01-18] MEDS: FUROSEMIDE 20 MG TABLET PO (07:59)
[2023-01-18 08:03] VITALS: BP 135/91; PULSE 79; RESP 16; TEMP 36.5
[2023-01-18] MEDS: LABETALOL HCL 100 MG TABLET 200 MG PO (09:04)
[2023-01-18] MEDS: DOCUSATE SODIUM 100 MG CAPSULE PO (09:04)
[2023-01-18] MEDS: ENOXAPARIN 40 MG/0.4 ML INJ SUBCUT (09:06)
--- NOTE | 2023-01-18 09:09 | P.DS_ITS ---
DS: Providers Provider Date Seen: 01/18/23 Date of admission: 01/15/23 15:49 Primary care physician: Debra Ravi PA-C Admitting Clinician: Yisel Prado MD Consults: Planer Chain Offbearer Physician on discharge: Yisel Prado MD Date of Discharge: 01/18/23 DS: Diagnosis Discharge Diagnosis (1) Obesity: Status: Acute Problem details: Elevated risk for developing the VTE postop (2) delivery delivered: Status: Acute (3) Anemia complicating : Status: Acute Problem details: Asymptomatic, will start iron supplementation after bowel movement (4) Gestational hypertension: Status: Acute Problem details: Blood pressures in normal range with labetalol 200 mg twice daily, HELLP labs normal (5) KEYSHAWN (generalized anxiety disorder): Status: Chronic Problem details: Mood stable Exam Const: Vital Signs, click to edit/add: Vital Signs - 24 hr 01/17/23 10:00 01/17/23 11:00 01/17/23 11:43 Temperature 98.2 F Pulse Rate [Right Pulse Oximeter] 98 Respiratory Rate 18 16 16 Blood Pressure [Ri ght Arm] 106/70 Pulse Oximetry 98 Oxygen Delivery Me thod Room Air 01/17/23 12:00 01/17/23 13:00 01/17/23 14:00 Temperature Pulse Rate [Right Pulse Oximeter] Respiratory Rate 16 16 16 Blood Pressure [Ri ght Arm] Pulse Oximetry Oxygen Delivery Me thod 01/17/23 15:00 01/17/23 15:53 01/17/23 16:00 Temperature 98.0 F Pulse Rate [Right Pulse Oximeter] 86 Respiratory Rate 18 18 16 Blood Pressure [Ri ght Arm] 120/73 Pulse Oximetry 98 Oxygen Delivery Me thod Room Air 01/17/23 17:00 01/17/23 18:00 01/17/23 19:00 Temperature Pulse Rate [Right Pulse Oximeter] Respiratory Rate 16 16 16 Blood Pressure [Ri ght Arm] Pulse Oximetry Oxygen Delivery Me thod 01/17/23 20:37 01/18/23 00:45 01/18/23 08:03 Temperature 98 F 97.7 F Pulse Rate [Right Pulse Oximeter] 97 84 79 Respiratory Rate 16 16 Blood Pressure [Ri ght Arm] 134/85 120/74 135/91 H Pulse Oximetry 96 Oxygen Delivery Me thod Room Air Room Air Common normals: no apparent distress and oriented x3 General appearance: cooperative, comfortable and well kempt Resp: Common normals: normal respiratory effort Effort & inspection: able to speak in complete sentences GI: Common normals: soft to palpation Inspection: abdominal distension Palpation: soft; non-tender Other: Fundus firm below umbilicus, incision clean, dry, intact with Dermabond overlying wound Extremity: Other: Pitting edema to knees bilaterally, no tenderness Neuro: Common normals: oriented x3 Psych: Appearance: well kempt OB - DS: Summary Hospital Course Hospital Course: The patient is a 22 year old G 1 P 0 at 36w6 gestation that was admitted to the Center on 01/15/23 for induction of labor secondary to gestational hypertension. She had a delivery for arrest of descent, see operative report for details. She delivered a viable male . She is breast and bottle feeding. the patient has done well, blood pressure is well controlled with labetalol 200 mg twice daily, mood stable on escitalopram, bilateral lower extremity edema but not painful, postoperative blood loss anemia but asymptomatic. At time of discharge patient was ambulating without difficulty, tolerating regular diet, pain controlled on oral pain medications, and voiding spontaneously. Peripartum Data Infant delivery method: Primary C/S; Labored Laceration description: None Procedures: Procedures Operation Date: 01/16/23 18:30 Actual Procedure Side Surgeon p Section Not Applicable Ysiel Prado MD [place] Gender: Male Time Spent with Patient Time attestation: Total time spent providing and/or coordinating discharge services: Time spent: Greater than 30 minutes Discharge Plan Discharge Disposition: Home, Self-Care Date of Admission: 01/15/23 15:49 Attending Provider on Discharge: Vidal Vee Primary Care Provider: Debra Ravi Condition: Stable Anticipated Discharge Date/Time: 01/18/23 09:17 Discharge Medications: New acetaminophen 500 mg Tablet 1,000 mg PO Q6H PRN (Reason: Pain) Qty: 30 0RF ferrous sulfate 325 mg (65 mg iron) Tablet 325 mg PO DAILYWM Qty: 30 0RF docusate sodium 100 mg Capsule 100 mg PO DAILY Qty: 30 0RF ibuprofen 600 mg Tablet 600 mg PO Q6H PRN (Reason: Pain) Qty: 30 0RF labetalol 100 mg Tablet 200 mg PO BID 60 Days Qty: 240 0RF oxycodone 5 mg Tablet 5 - 10 mg PO Q4H PRN (Reason: Pain) 4 Days Qty: 12 0RF Continued escitalopram oxalate 10 mg tablet 10 mg PO QDAY Qty: 60 3RF prenat.vits,lino,[id number]-[id number] Tablet 1 tab PO QDAY Discontinued aspirin [Adult Low Dose Aspirin] 81 mg tablet,delayed release (DR/EC) 81 mg PO DAILY Discharge Orders: Discharge Order (Routine); Ordered 01/18/23 Ordered By: Vidal Vee Patient Education: OB High Blood Pressure DC, OB /Breast Feeding Activity Detail: No lifting more than 15 lb for 6 weeks, no driving while taking opioid pain medications or for 1-2 weeks until you can stop on the brakes without resting because pain, nothing in the vagina for 6 weeks: No sex, no tampons, use a pad Discharge Diet: Regular Follow Up Appointments: Debra Ravi PA-C [Primary Care Provider] - Forms: [facility] Info Inst[facility]
== END 2023-01-18 12:35 | disposition home or self-care (01) | DRG 787 ==
PROVIDERS: Admitting Provider Obstetrics & Gynecology; PCP Physician Assistant Medical; Visit Provider Obstetrics & Gynecology
PROC: 10D00Z1 Extraction of Products of Conception, Low, Open Approach (ICD-10-PCS; CPT 59514; principal; 2023-01-16 18:15)
DX: O13.4 Gestational [pregnancy-induced] hypertension without significant proteinuria, complicating childbirth (principal); D62 Acute posthemorrhagic anemia; O14.04 Mild to moderate pre-eclampsia, complicating childbirth; O32.4XX0 Maternal care for high head at term, not applicable or unspecified; O36.63X0 Maternal care for excessive fetal growth, third trimester, not applicable or unspecified; O62.2 Other uterine inertia; O99.02 Anemia complicating childbirth; O99.344 Other mental disorders complicating childbirth; F41.1 Generalized anxiety disorder; O99.214 Obesity complicating childbirth; O99.824 Streptococcus B carrier state complicating childbirth; L29.8 Other pruritus; T40.2X5A Adverse effect of other opioids, initial encounter; Y92.239 Unspecified place in hospital as the place of occurrence of the external cause; M41.20 Other idiopathic scoliosis, site unspecified; Z3A.36 36 weeks gestation of pregnancy; Z37.0 Single live birth; G89.18 Other acute postprocedural pain
CPT/HCPCS: 01967; 01968; 36415; 59200; 64488; 76942; 82565; 82570; 84156; 84450; 84460; 84520; 85025; 85027; 85384; 85610; 85730; 86850; 86900; 86901; 88307; 99140; A9270; C1726; C9290; J0290; J0456; J0665; J0690; J0702; J1200; J1650; J1885; J2270; J2274; J2371; J2590; J2795; J3010; J7050; J7120

== ENCOUNTER 2023-01-28 10:15 | Outpatient (CLI) | payer OTHER, SELFPAY ==
--- NOTE | 2023-01-28 17:00 | W.PM.LAC.MC ---
Consult Note - Mom Date of Visit Date of visit: 01/28/23 consultant dietitian: Maria Ines Hunt Visit Code: Visit Patient's Information Phone number: [phone] : 1 Para: 1 Allergies No Known Drug Allergies Allergy (Verified 01/31/23 11:31) Mother's Medical History: Medical History (Updated 01/31/23 @ 13:15 by Sharifa Hernández PA-C) macrosomia Gestational hypertension ?O13.9 - Gestational [-induced] hypertension without significant proteinuria, unspecified trimester (ICD-10) KEYSHAWN (generalized anxiety disorder) ?F41.1 - Generalized anxiety disorder (ICD-10) Work Plans: returns to work in about 10 weeks Delivery Information Delivery type: Primary C/S; Labored Weeks Gestation: 37.0 Gestational Age: LGA Weight: 3.685 kg Discharge Weight: 3.582 kg Baby's Information Baby's Age at Visit: 12 days Baby's Provider or Clinic: Dr. Rodas Jaundice: No Reason for Consult Reason for Consult: assessment Past Experience Past Experience: No Current Frequency of Day Feedings: every 2 - 3 hours Frequency of Night Feedings: every 3 - 4 hours Both Breasts: Yes Suck: strong Latch: fairly wide Length of Time: 10 - 15 min/side Goals: as long as possible Pumping Pumping: Yes (about three times/day) Quantity Pumped: 4 - 6 oz total each time Supplementing EMB Supplement: Yes (about three times/day) Formula Supplement: No Baby Elimination Number of Wet Diapers a Day: every feeding Number of BM a Day: about 6, yellow and seedy Breast/Nipple Condition Breast Information: WNL Maternal Nipple Condition - Left: Common Nipple Maternal Nipple Condition - Right: Common Nipple Sore Nipples: Yes (right side) Onsite Pre-Feed weight: 3.7 kg Post-Feed weight: 3.76 kg Milk Transferred (mL): 60 Assessments/Interventions Assessments/Interventions: Met with mom and this now 12 day old ex- term LGA baby for consult. Mom reports is going well now, in the hospital baby was given formula for low blood sugars and concern for jaundice. Mom reports baby nurses every 2 - 4 hours for 10 - 15 minutes per side. He gets no more than three 2 oz bottles of EBM during the day (if mom is out of the house or dad wants to feed him). Mom pumps TID and gets 4 - 6 oz total each time. Breasts WNL- symmetrical with rounded lower quadrants, intramammary distance < 1.5 inches. Nipples are everted and don't flatten or retract on compression, no damage noted. Baby has gained 36 grams/day since his last visit with PCP on 01/23 and he's 15 grams above his BW at 12 DOL. Per the notes, he had a cephalohematoma but that has resolved. Mom reports equal ROM when turning his head and moving his extremities. His palate is WNL as is his upper frenulum. His tongue extends past the gum line when sucking on a finger and he has a strong suck; the tongue also has good lateral movement with minimal canoeing. The lower frenulum wasn't visualized, posterior? Mom latched baby to the right side in the cradle hold and the latch was shallow, baby also had a hard time maintaining the latch. When she was verbally coached to hold baby in the cross cradle hold, point her nipple to his nose, bring him quickly to her when he opened wide, and support her breast for about 30 seconds once he's latched she was able to bring him on more deeply. She reported more comfort and baby was able to maintain his latch throughout the nursing session, which lasted about 15 minutes. Mom then offered the left side and was able to get a deeper latch using the ideas mentioned. Baby nursed about 10 minutes and when weighed had transferred 60 ml. Plan: 1. Encouraged mom to continue nursing ALD (baby should have at 8 - 12 feedings in 24 hours). Offer both sides and use the ideas above to help get a wider, more comfortable latch. 2. OK to supplement prn, POC are practicing paced feeding. 3. OK to continue pumping TID, could reduce it if feeling overwhelmed. She has a Zomee hands free pump and feels her flange sizes are correct. 4. Gave stretches for her and baby; encouraged tummy time. 5. Will f/u for a circumcision appointment on 02/01 and in for a one month weight check on 02/15. Meds Home Medications and Allergies Home Medications Medication Instructions Recorded Confirmed Type prenat.vits,lino,[id number]-rlmuy 1 tab PO QDAY 07/30/22 01/31/23 History Allergies Allergy/AdvReac Type Severity Reaction Status Date / Time No Known Drug Allergies Allergy Verified 01/31/23 11:31
== END 2023-01-28 10:16 | disposition home or self-care (01) ==
LOC: OB LAC 10:16
PROVIDERS: PCP Physician Assistant Medical; Visit Provider Obstetrics & Gynecology
DX: Z39.1 Encounter for care and examination of lactating mother (principal)
CPT/HCPCS: 99211

== ENCOUNTER 2023-01-31 12:01 | Outpatient (CLI) | payer OTHER, SELFPAY | END 2023-01-31 12:02 | disposition home or self-care (01) | PROVIDERS: PCP Physician Assistant Medical; Visit Provider Physician Assistant | DX: Z39.2 Encounter for routine postpartum follow-up (principal) | CPT/HCPCS: 80076; 82150; 82565; 83690; 84520 ==

== ENCOUNTER 2023-02-01 12:42 | Outpatient (CLI) | payer OTHER, SELFPAY ==
--- NOTE | 2023-02-01 13:00 | CRLHL7_ITS ---
For Patients: As a result of the Century Cures Act, medical imaging exams and procedure reports are released immediately into your electronic medical record. You may view this report before your referring provider. If you have questions, please contact your health care provider. INDICATION: RUQ PAIN COMPARISON: none TECHNIQUE: Real time velazquez scale imaging and color Doppler analysis was performed of the right upper quadrant. FINDINGS: The patient`s liver is of normal size and has uniform echogenicity. There is a normal appearance of the hepatic IVC and proximal abdominal aorta. There is no evidence of ascites. The gallbladder is of normal size and there is no evidence of intraluminal stones or sludge. The gallbladder wall measures 1 mm in thickness. The common bile duct is of normal size and measures 4 mm in diameter at the level of the sharon hepatis. The pancreas appears normal. There is no evidence of a stone or hydronephrosis within the right kidney. The right kidney measures 10.2 cm in length. IMPRESSION: Normal right upper quadrant ultrasound. Dictated by Good Weeks MD @ 02/01/2023 3:35:22 PM (Electronically Signed)
== END 2023-02-01 12:43 | disposition home or self-care (01) ==
PROVIDERS: PCP Physician Assistant Medical; Visit Provider Physician Assistant
DX: R10.11 Right upper quadrant pain (principal)
CPT/HCPCS: 76705

== ENCOUNTER 2023-02-28 09:33 | Outpatient (CLI) | payer OTHER, SELFPAY | END 2023-02-28 09:34 | disposition home or self-care (01) | LOC: NFLDREF 09:34 | PROVIDERS: PCP Physician Assistant Medical; Visit Provider Physician Assistant | DX: Z39.2 Encounter for routine postpartum follow-up (principal) | CPT/HCPCS: 80076 ==

== ENCOUNTER 2023-03-26 13:34 | Outpatient (CLI) | payer OTHER, SELFPAY | END 2023-03-26 13:35 | disposition home or self-care (01) | PROVIDERS: PCP Physician Assistant Medical; Visit Provider Physician Assistant Medical | DX: R74.8 Abnormal levels of other serum enzymes (principal); E66.9 Obesity, unspecified | CPT/HCPCS: 80076; 86704; 86705; 86706; 86708 ==

== ENCOUNTER 2023-07-18 11:45 | Outpatient (CLI) | payer OTHER, BC, SELFPAY | END 2023-07-18 11:46 | disposition home or self-care (01) | LOC: NFLDREF 07-19 07:26 | PROVIDERS: PCP Physician Assistant Medical; Referring Provider Physician Assistant Medical; Visit Provider Physician Assistant Medical | DX: R11.0 Nausea (principal); R42 Dizziness and giddiness; R74.8 Abnormal levels of other serum enzymes; E66.9 Obesity, unspecified | CPT/HCPCS: 82728; 84443; 84450; 84460 ==

== ENCOUNTER 2023-09-03 22:27 | Emergency (ER) | payer OTHER, BC, SELFPAY ==
[2023-09-03 22:33] VITALS: BP 102/69; PULSE 125; RESP 22; TEMP 36.7; O2SAT 99
[2023-09-03] MEDS: 0.9 % SODIUM CHLORIDE 1000 ml 1,000 ML IV (22:35)
[2023-09-03 22:49] LABS: Basophils Absolute Auto 0.01 K/uL (0.00-0.30); Basophils Percent Auto 0.2 % (0.0-3.0); Eosinophils Absolute Auto 0.03 K/uL (0.00-0.50); Eosinophils Percent Auto 0.6 % (0.0-7.0); Hematocrit 42.4 % (33.0-51.0); Hemoglobin* 13.3 gm/dL (12.0-16.0); Immature Granulocytes Abs Auto 0.01 K/uL (0.00-0.30); Immature Granulocytes Pct Auto 0.2 %; Lymphocytes Absolute Auto 1.46 K/uL (0.90-2.90); Lymphocytes Percent Auto 31.2 % (20-44); Mean Corpuscular HGB Conc 31 gm/dL (32-36); Mean Corpuscular Hemoglobin 25 pg (26-34); Mean Corpuscular Volume 81 fL (80-100); Monocytes Percent Auto 0.6 % (0.0-11.0); Neutrophils Absolute Auto 3.14 K/uL (1.7-7.0); Neutrophils Percent Auto 67.2 % (42.0-72.0); Platelet Count* 211 K/uL (140-440); RDW Coefficient of Variation % 13.2 % (11.5-15.5); Red Blood Count 5.27 m/uL (4.00-5.20); White Blood Count* 4.68 K/uL (4.50-11.00)
[2023-09-03 22:52] LABS: Slide Review Reflex No
[2023-09-03] MEDS: ONDANSETRON 2 MG/ML inj 4 MG IVP (22:55)
--- NOTE | 2023-09-03 22:56 | ED_ITS ---
HPI - General Adult General Chief complaint: Unspecified Complaint, Adult Stated complaint: Shivering/Vomit- feels numb on her leg/hands Time Seen by Provider: 09/03/23 22:35 History of Present Illness HPI narrative: This 23-year-old female comes in reporting symptoms that began about an hour prior to arrival when she awoke from a nap. She awoke feeling some shivering and did have some nausea with [address] She does not report any fever. She does have some upper epigastric abdominal pain and reports a history of some irritable bowel symptoms. She does not report any chest pain or shortness of breath. She does not have dysuria symptoms or cough. She does have anxiety symptoms regarding this and his a history of generalized anxiety. She does arrive with normal vital signs except her heart rate is increased. Related Data Previous Rx's Medication Instructions Recorded escitalopram oxalate 10 mg tablet 15 mg (1.5 x 10 mg) PO QDAY 30 07/22/23 days #45 tabs Allergies Allergy/AdvReac Type Severity Reaction Status Date / Time No Known Drug Allergies Allergy Verified 09/03/23 22:35 Review of Systems Status of ROS: Reports: 10 or more systems reviewed and unremarkable except as noted in History and below Narrative: Constitutional: No fevers, no weight gain or loss. Eyes: No discharge. No vision changes. HENT: No congestion, no sore throat, no ear pain. Cardiovascular: No chest pain, no palpitations. Respiratory: No shortness of breath, no wheezes, no cough. Gastrointestinal: Upper epigastric abdominal pain that comes and goes. Nausea with 1 emesis. Genitourinary: No dysuria, no hematuria. Musculoskeletal: Normal range of motion. Skin: No rashes, no pruritis. Neurological: No dizziness, weakness, sensory change, speech change. Endo/Heme/Allergies: No bruising or bleeding. No polydipsia. Pysch: no suicidality, no anxiety, no insomnia. All other systems reviewed and are negative. [facility] Medical History (Updated 09/03/23 @ 23:35 by Austin German MD) macrosomia Gestational hypertension ?O13.9 - Gestational [-induced] hypertension without significant proteinuria, unspecified trimester (ICD-10) Idiopathic scoliosis (12/04/12) ?M41.20 - Other idiopathic scoliosis, site unspecified (ICD-10) Constipation ?K59.00 - Constipation, unspecified (ICD-10) KEYSHAWN (generalized anxiety disorder) ?F41.1 - Generalized anxiety disorder (ICD-10) Surgical History History of section, low transverse ?Z98.891 - History of uterine scar from previous surgery (ICD-10) Family History Mother PCOS (polycystic ovarian syndrome) Anxiety Dyslexia Other Thyroid disease Social History Narrative: . tmd teacher assistant. Nonsmoker What is your current living situation?: I presently have a place to live Problems where you live: no known problems In the past 12 months, utilities in danger of being shut off: no In past 12 months, lack of transportation kept you from medical appts, meetings, work, or getting things needed for daily living: no In the past 12 mos, have been you worried that your food would run out before you had money to buy more?: never true In the past 12 mos, the food you bought just didn't last and you didn't have money to buy more?: never true Smoking Status: Never smoker Do you use any of these nicotine containing products: None Second hand tobacco smoke exposure: No How often do you have a drink containing alcohol: never AUDIT-C Alcohol total score: 0 Non-prescribed substance use: denies use How often does anyone, including family, friends and others, physically hurt you : never How often does anyone, including family, friends and others, insult or talk down to you: never How often does anyone, including family, friends and others, threaten you with harm: never How often does anyone, including family, friends and others, scream or curse at you: never Little interest or pleasure in doing things: not at all Feeling down, depressed, or hopeless: not at all Exam Narrative: Exam Narrative: Constitutional: Well-developed, well-nourished, no acute distress. HEENT: Normocephalic, atraumatic. Neck: Normal range of motion. Nontender. Supple. Heart: Regular. No murmurs. Normal rate. Intact distal pulses. Lungs: Clear to auscultation. No chest discomfort. No wheezes, rhonchi, or rales. Abdomen: Normal bowel sounds. Mild tenderness in the upper epigastrium. No rebound tenderness. Genitalia: Deferred. Back: No midline tenderness. Normal range of motion. Extremities: Normal range of motion. No injury. Skin: Intact. No rash. Warm. No erythema or pallor. Neurologic: No altered sensation. No weakness. Alert and oriented. Psychiatric: No suicidality. No anxiety or depression. No insomnia. Nursing notes and vitals signs are reviewed. Const: Vital Signs, click to edit/add: Vital Signs - 24 hr 09/03/23 22:33 09/03/23 22:57 Temperature 98.1 F 98.1 F Pulse Rate [Right Pulse Oximeter] 125 H Respiratory Rate 22 Blood Pressure [Ri ght Upper Arm] 102/69 Pulse Oximetry 99 Oxygen Delivery Me thod Room Air Course Vital Signs Vital signs: Initial Vital Signs Temperature 98.1 F 09/03/23 22:33 Temperature Source Temporal Artery Scan 09/03/23 22:33 Pulse Rate 125 H 09/03/23 22:33 Respiratory Rate 22 09/03/23 22:33 Blood Pressure 102/69 09/03/23 22:33 Blood Pressure Mean 80 09/03/23 22:33 Blood Pressure Position Sitting 09/03/23 22:33 Pulse Oximetry 99 09/03/23 22:33 Oxygen Delivery Method Room Air 09/03/23 22:33 Vital Signs Temperature 98.1 F 09/03/23 22:33 Pulse Rate 125 H 09/03/23 22:33 Respiratory Rate 22 09/03/23 22:33 Blood Pressure 102/69 09/03/23 22:33 Pulse Oximetry 99 09/03/23 22:33 Oxygen Delivery Method Room Air 09/03/23 22:33 Temperature 98.1 F 09/03/23 22:57 Pulse Rate 125 H 09/03/23 22:33 Respiratory Rate 22 09/03/23 22:33 Blood Pressure 102/69 09/03/23 22:33 Pulse Oximetry 99 09/03/23 22:33 Oxygen Delivery Method Room Air 09/03/23 22:33 Medications Administered Medications: Generic Name Dose Route Start Last Admin Trade Name Freq PRN Reason Stop Dose Admin Sodium Chloride 1,000 mls @ 1,000 mls/hr 09/03/23 23:00 09/03/23 23:18 0.9 % Sodium Chloride 1000 Ml IV 09/03/23 23:59 Infused .Q1H SEE Infusion Discontinued Medications Generic Name Dose Route Start Last Admin Trade Name Ana PRN Reason Stop Dose Admin Ketorolac Tromethamine 15 mg 09/03/23 22:50 09/03/23 22:57 Ketorolac 30 Mg/Ml Inj IVP 09/03/23 22:51 15 mg ONCE ONE Administration Ondansetron HCl 4 mg 09/03/23 22:50 09/03/23 22:55 Ondansetron 2 Mg/Ml Inj IVP 09/03/23 22:51 4 mg ONCE ONE Administration Medical Decision Making MDM Narrative Medical decision making narrative: This patient comes in with rather recent onset of feeling shaky with some nausea and 1 vomiting episode. She arrives here with normal vital signs except for heart rate was increased. On re-examination her heart rate has normalized. An IV was established and the patient did receive a L of normal saline along with Zofran 4 mg. Lab results returned with no concerning findings. The patient states that she is feeling much better. She is okay to be discharged home. I did provide a [facility] prescription for Zofran. Lab Data Labs: Lab Results 09/03/23 Range/Units 22:40 WBC 4.68 (4.50-11.00) K/uL RBC 5.27 H (4.00-5.20) m/uL Hgb 13.3 (12.0-16.0) gm/dL Hct 42.4 (33.0-51.0) % MCV 81 (80-100) fL MCH 25 L (26-34) pg MCHC 31 L (32-36) gm/dL RDW Coeff of Nelly 13.2 (11.5-15.5) % Plt Count 211 (140-440) K/uL Neut % (Auto) 67.2 (42.0-72.0) % Lymph % (Auto) 31.2 (20-44) % Billings % (Auto) 0.6 (0.0-11.0) % Eos % (Auto) 0.6 (0.0-7.0) % Baso % (Auto) 0.2 (0.0-3.0) % Neut # (Auto) 3.14 (1.7-7.0) K/uL Lymph # (Auto) 1.46 (0.90-2.90) K/uL Billings # (Auto) 0.00 (0.00-0.90) K/UL Eos # (Auto) 0.03 (0.00-0.50) K/uL Baso # (Auto) 0.01 (0.00-0.30) K/uL Abs Immat Gran (auto) 0.01 (0.00-0.30) K/uL Imm/Tot Granulo (auto) 0.2 % Sodium 141 (135-149) mmol/L Potassium 3.7 (3.6-5.1) mmol/L Chloride 104 (96-114) mmol/L Carbon Dioxide 29 (20-32) mmol/L Anion Gap 8 (7-15) mEq/L BUN 17 (5-24) mg/dL Creatinine 0.7 (0.5-1.5) mg/dL Estimated Creat Clear 111.51 Estimated GFR 124 ml/min Glucose 110 (60-115) mg/dL Calcium 8.5 (8.4-10.6) mg/dL HCG, Qual Negative (Negative) Discharge Plan Discharge Clinical Impression: Vomiting Patient Disposition: Home, Self-Care Condition: Improved Additional Instructions: Continue current plans. Use medication as needed and directed. Follow up with MD return if worsening. Prescriptions: No Action escitalopram oxalate 10 mg tablet 15 mg PO QDAY 30 Days Qty: 45 3RF Follow Up/Referrals: Debra Ravi, SUSAN [Primary Care Provider] - Stand Alone Forms: MyHealth Info Instructions
[2023-09-03 22:57] VITALS: TEMP 36.7
[2023-09-03] MEDS: KETOROLAC 30 MG/ML inj 15 MG IVP (22:57)
[2023-09-03 23:07] LABS: Chloride* 104 mmol/L (96-114)
[2023-09-03 23:08] LABS: Potassium* 3.7 mmol/L (3.6-5.1); Sodium* 141 mmol/L (135-149)
[2023-09-03 23:10] LABS: Anion Gap 8 mEq/L (7-15); Carbon Dioxide* 29 mmol/L (20-32); Creatinine* 0.7 mg/dL (0.5-1.5); Est. Creatinine Clearance* 111.51; Estimated Glomerular Filt Rate 124 ml/min
[2023-09-03 23:11] LABS: Blood Urea Nitrogen* 17 mg/dL (5-24); Calcium* 8.5 mg/dL (8.4-10.6); Glucose* 110 mg/dL (60-115)
[2023-09-03 23:30] LABS: HCG Qualitative Serum* Negative (Negative)
[2023-09-03 23:38] VITALS: BP 110/70; PULSE 99; RESP 22; TEMP 36.7; O2SAT 99
[2023-09-03 23:39] VITALS: BP 110/70; PULSE 99; RESP 22; TEMP 36.7
== END 2023-09-03 23:39 | disposition home or self-care (01) ==
PROVIDERS: Emergency Provider Emergency Medicine Emergency Medical Services; PCP Physician Assistant Medical
DX: R11.10 Vomiting, unspecified (principal)
CPT/HCPCS: 36415; 80048; 84703; 85025; 96374; 96375; 99283; 99284; J1885; J2405; J7030

== ENCOUNTER 2024-01-14 11:06 | Outpatient (CLI) | payer OTHER, BC, SELFPAY | END 2024-01-14 11:07 | disposition home or self-care (01) | LOC: NFLDREF 01-16 08:49 | PROVIDERS: PCP Physician Assistant Medical; Referring Provider Physician Assistant Medical; Visit Provider Physician Assistant Medical | DX: R30.0 Dysuria (principal); N89.8 Other specified noninflammatory disorders of vagina; N39.0 Urinary tract infection, site not specified | CPT/HCPCS: 87086 ==

== ENCOUNTER 2024-01-31 10:54 | Outpatient (CLI) | payer OTHER, BC, SELFPAY ==
[2024-01-31 17:56] LABS: Bacterial Vaginosis* Negative (Negative); Candida glab/krus NOT DETECTED (No Detected); Candida species NOT DETECTED (No Detected); Trichomonas vaginalis NOT DETECTED (No Detected)
[2024-01-31 18:22] LABS: Chlamydia DNA Amplified* NOT DETECTED (No Detected); GC DNA Amplified* NOT DETECTED (No Detected)
== END 2024-01-31 10:55 | disposition home or self-care (01) ==
PROVIDERS: PCP Physician Assistant Medical; Visit Provider Registered Nurse
DX: N89.8 Other specified noninflammatory disorders of vagina (principal)
CPT/HCPCS: 81513; 87086; 87481; 87491; 87591; 87661

== ENCOUNTER 2024-08-17 10:35 | Outpatient (CLI) | payer OTHER, BC, SELFPAY | END 2024-08-17 10:36 | disposition home or self-care (01) | LOC: NFLDREF 08-19 03:01 | PROVIDERS: PCP Physician Assistant Medical; Referring Provider Physician Assistant Medical; Visit Provider Physician Assistant Medical | DX: Z00.01 Encounter for general adult medical examination with abnormal findings (principal); F41.1 Generalized anxiety disorder; R74.8 Abnormal levels of other serum enzymes | CPT/HCPCS: 80053; 80061; 84443 ==

== ENCOUNTER 2024-09-01 14:15 | Outpatient (CLI) | payer OTHER, SELFPAY ==
[2024-09-04 02:58] LABS: HPV Source Cervical/Vag; HPV, High Risk by TMA Not Detected
== END 2024-09-01 14:16 | disposition home or self-care (01) ==
PROVIDERS: PCP Physician Assistant Medical; Visit Provider Physician Assistant Medical
DX: Z12.4 Encounter for screening for malignant neoplasm of cervix (principal); Z11.51 Encounter for screening for human papillomavirus (HPV)
CPT/HCPCS: 87624; 87625; 88141; 88142

== ENCOUNTER 2024-10-12 08:15 | Emergency (ER) | payer OTHER, SELFPAY ==
--- OUTSIDE RECORDS SUMMARY | 2024-10-12 08:18 | XMS_ITS | Clinical Summary ---
Author Organization [facility] Address [address] [place] [id number] Care Team Providers Care Office Admin Name Role Phone [facility] Provi laine Mason, [facility] Unavailable Unava ilable Allergies No known active allergies Medications azithromycin (Zithromax Z-Suleiman) 250 mg tablet Take 250 mg by mouth every 24 hours. Take 500 mg (2 tabs) by mouth on day 1, then 250 mg (1 tab) daily for days 2-5. Active escitalopram oxalate (LEXAPRO) 10 mg tablet Take 10 mg by mouth every morning. 04/03/2023 Active Immunizations Immunization Administration Dates Next Due AMB Influenza, (Flumist) Jany e Intranasal,LAIV4 (Flu Clinic Only) 02/20/2008 DTaP 08/15/2004, 1,01/23/2000,1999,1999 HIB-HepB (Comvax) 12/05/2000, 0,1999,1999 Hepatitis A (Peds) 12/11/2007 Inactivated Polio Vaccine 08/15/2004,02/2001,01/23/2000,1999,1999 Influenza, IIV3 (Age >=3 years) 03/05/2005 MMR 08/15/2004,12/05/2000 Varicella Vaccine 12/11/2007,08/07/2000 Family History Relation Name Status Comments Mother Alive Social History Tobacco Use Types Packs/Day Years Used Date Smoking Tobacco: Never Passive Smoke Exposure: Never Smokeless Tobacco: Never Tobacco Cessation:Counseling Given: Not Answered Alcohol Use Standard Drinks/Week Comments Not Currently 0 (1 standard drink = 0.6 oz pur e alcohol) Comments Unknown Sex and Gender Information Value Date Recorded Sex Assigned at Not on file Legal Sex Female 2:26 PM CDT Gender Identity Not on file Sexual Orientation Not on file Obstetrics History Last Filed Vital Signs Vital Sign Reading Time Taken Comments Blood Pressure 112/82 07/22/2023 8:14 PM CDT Pulse 101 07/22/2023 8:14 PM CDT Temperature 37.4 C (99.4 F) 07/22/2023 8:14 PM CDT Respiratory Rate 14 07/22/2023 8:14 PM CDT Oxygen Saturation 98% 07/22/2023 8:14 PM CDT Inhaled Oxygen Concentration - - Weight 82.6 kg (182 lb) 07/22/2023 8:14 PM CDT Height 165.1 cm (5' 5) 07/22/2023 8:14 PM CDT Body Mass Index 30.29 07/22/2023 8:14 PM CDT Plan of Treatment Health Maintenance Due Date Last Done Comments Tdap 07/19/2010 Depression screening for age 12+ 2011 HIV for age 15-65 07/19/2014 HPV series for age 9-26 (1 - 3-dose series) 07/19/2014 BMI (ht and wt on same day) for age 18+ 07/19/2017 Hepatitis C screening for age 18-79 07/19/2017 Tetanus booster 2019 COVID-19 vaccine series ( season) 2023 Pap test for age 21-65 08/25/2024 08/25/2021 Influenza Vaccine (Season Ended) 2024 02/20/2008, 03/05/2005 Hepatitis B series for 19+ Completed 12/05, 01/23/2000, 1999, Additional history exists Pneumococcal series for age 6-49 Aged Out No longer eligible based on patient's age to complete this topic Procedures Procedure Name Priority Date/Time Associated Diagnosis Comments CANDLE WICKER THIN PREP PAP SCREEN IMAGED Routine 08/25/2021 9:15 AM CDT from Last 3 Months or Most Recently Relevant to Health Maintenance Results * CANDLE WICKER THIN PREP PAP SCREEN IMAGED (08/25/2021 9:15 AM CDT) Case Report Gynecologic Cytology Report Case: [id number] Authorizing Provider: Debra Ravi PA-C Collected: 08/25/2021 0915 Ordering Location: [facility] Received: 08/28/2021 0803 First Screen: Magdalena Salvador Specimen: CANDLE WICKER ThinPrep Vial Screening, Cervical/Vaginal 09/07/2021 12:20 PM CDT [facility] [employer] [facility] INTERPRETATION/ RESULT NEGATIVE FOR INTRAEPITHELIAL LESION OR MALIGNANCY (NIL) (none) 09/07/2021 12:20 PM CDT [facility] [employer] [facility] at 1219 CDT SPECIMEN ADEQUACY Satisfactory for evaluation No endocervical component seen 09/07/2021 12:20 PM CDT [facility] [employer] [facility] HPV REQUEST HPV if ASCUS 09/07/2021 12:20 PM CDT [facility] [employer] [facility] Date of LMP 08/10/2021 09/07/2021 12:20 PM CDT [facility] [employer] [facility] Additional Information 09/07/2021 12:20 PM CDT [facility] [employer] [facility] Comment: Interpreted at [facility] - [address] [place] [address], [place] [address] Automated Review Successful 09/07/2021 12:20 PM CDT [facility] [employer] [facility] Comment:Specimen processed s uccessfully by automated gre instructor device, ThinPrep Imaging System, [employer] Note The pap test is a screening technique, not a diagnostic procedure. It is used primarily to screen for squamous cancers and precursor lesions. Published studies have shown that it is subject to both false negative and false positive results. The pap test should not be used as the sole means to diagnose or exclude pre-malignant and malignant lesions. 09/07/2021 12:20 PM CDT [facility] Other (Cervical/Vagina l) 08/25/2021 9:15 AM CDT 08/28/2021 8:03 AM CDT us Debra Ravi PA-C PATHOLOGY/CYTOLOGY Final Resu lt [facility]AL [facility] [address] [place] [address], from Last 3 Months or Most Recently Relevant to Health Maintenance Insurance [facility] OF [place] [employer] [place] Care Teams Office Admin Relationship Specialty Start Date End Date [facility] [place] [address] PCP - General 11/20/23 Mason, *Family Health 11/20/23
[2024-10-12 08:21] VITALS: BP 101/64; PULSE 105; RESP 18; TEMP 37.7; O2SAT 99; BMI 27.1
--- NOTE | 2024-10-12 08:37 | CRLHL7_ITS ---
For Patients: As a result of the Century Cures Act, medical imaging exams and procedure reports are released immediately into your electronic medical record. You may view this report before your referring provider. If you have questions, please contact your health care provider. INDICATION: Left lower quadrant pain TECHNIQUE: Ultrasound pelvis transabdominal and transvaginal for better assessment or to better visualize the endometrium. Real-time sonographic images with spectral and color Doppler imaging of the ovaries were obtained. COMPARISON: None FINDINGS: Uterus: 8.9 x 3.4 x 5.1 cm. Normal echotexture of the myometrium. No masses. Endometrium: Transvaginal imaging was performed to better evaluate the endometrium. Endometrial thickness measures 5.4 mm. No sign of endometrial mass or fluid. Right ovary measures 3.3 x 1.7 x 2.7 cm and left ovary measures 3.5 x 1.8 x 3.0 cm. No ovarian or adnexal masses. Normal arterial and venous blood flow is demonstrated in both ovaries. Cul-de-sac: Minimal free fluid. IMPRESSION: 1. Unremarkable pelvic sonogram Dictated by Eran Abdi MD @ 10/12/2024 9:52:37 AM (Electronically Signed)
--- NOTE | 2024-10-12 08:38 | ED_ITS ---
HPI - General Adult General Chief complaint: Abdominal Pain Stated complaint: fever- possible ovary cyst Time Seen by Provider: 10/12/24 08:22 Source: patient Mode of arrival: ambulatory Limitations: no limitations History of Present Illness HPI narrative: 24-year-old female presenting today with fever that started 2 days ago. Patient feels achy from head to toe. She states that she also had a very abnormal. This last week, was much instructional developer than usual however had significant cramping. Most of the cramping is located on the left lower quadrant. When she takes Tylenol or ibuprofen she feels much better. She denies nausea or vomiting. Appetite has been normal. She denies diarrhea or constipation, Has regular bowel movements. She denies increased urinary frequency or urgency, no dysuria. she denies any sick contacts or recent traveling. She denies cough or upper respiratory symptoms. She denies skin rashes. Patient is sexually active and is quite concerned about an ectopic . Related Data Previous Rx's ?Medication ?Instructions ?Recorded escitalopram oxalate 10 mg tablet 10 mg PO QDAY #90 ta bs 08/17/24 Allergies Allergy/AdvReac Type Severity Reaction Status Date / Time bupropion (From Wellbutrin) Allergy Intermediate Rash Verified 10/12/24 08:30 Review of Systems Status of ROS: Reports: 10 or more systems reviewed and unremarkable except as noted in History and below [facility] Medical History ?Z34.90 - Encounter for supervision of normal , unspecified, unspecified trimester (ICD-10) related hip pain in third trimester, antepartum ?O26.893 - Other specified related conditions, third trimester (ICD-10) ?M25.559 - Pain in unspecified hip (ICD-10) Anemia complicating ?O99.019 - Anemia complicating , unspecified trimester (ICD-10) Pelvic fullness ?R19.00 - Intra-abdominal and pelvic swelling, mass and lump, unspecified site (ICD-10) macrosomia Gestational hypertension ?O13.9 - Gestational [-induced] hypertension without significant proteinuria, unspecified trimester (ICD-10) Idiopathic scoliosis (12/04/12) ?M41.20 - Other idiopathic scoliosis, site unspecified (ICD-10) Constipation ?K59.00 - Constipation, unspecified (ICD-10) KEYSHAWN (generalized anxiety disorder) ?F41.1 - Generalized anxiety disorder (ICD-10) Surgical History History of section, low transverse ?Z98.891 - History of uterine scar from previous surgery (ICD-10) Family History Mother PCOS (polycystic ovarian syndrome) Anxiety Dyslexia Father Drug dependence Other Alcohol dependence Thyroid disease Social History Narrative: . junior assistant manager. Nonsmoker What is your current living situation?: I presently have a place to live Problems where you live: no known problems In the past 12 months, utilities in danger of being shut off: no In past 12 months, lack of transportation kept you from medical appts, meetings, work, or getting things needed for daily living: no In the past 12 mos, have been you worried that your food would run out before you had money to buy more?: never true In the past 12 mos, the food you bought just didn't last and you didn't have money to buy more?: never true Smoking Status: Never smoker Do you use any of these nicotine containing products: None Second hand tobacco smoke exposure: No How often do you have a drink containing alcohol: never AUDIT-C Alcohol total score: 0 Non-prescribed substance use: denies use How often does anyone, including family, friends and others, physically hurt you : never How often does anyone, including family, friends and others, insult or talk down to you: rarely How often does anyone, including family, friends and others, threaten you with harm: never How often does anyone, including family, friends and others, scream or curse at you: never Health Related Social Needs: Other personal risk factors, not elsewhere classified (Z91.89) Exam Narrative: Exam Narrative: Well-nourished well-developed patient in no acute distress. Alert and oriented. Answers questions appropriately. Mood and affect are appropriate. Thoughts are goal oriented and rational. No tangential or magical thinking noted. Patient speaks in full sentences without needing to catch Her breath. patient does not appear ill or toxic. HEENT: Normocephalic atraumatic. Pupils are equally round reactive to light. Extraocular muscles are intact. Conjunctivae are moist without any icterus noted. Moist mucous membranes. Posterior pharynx is normal. Neck is soft . Cardiovascular: Heart is regular rate and rhythm S1 and S2 are present without any murmurs. Pulse recheck was 90. Lungs: Clear to auscultation bilaterally no wheezes rhonchi or rales are appreciated. Patient takes deep breaths without any discomfort. Abdomen: Soft and nondistended with normal bowel sounds. No guarding or rebound. No masses or organomegaly appreciated. She has minimal discomfort in the left lower quadrant. Negative Wall sign. remainder of the abdominal exam completely unremarkable. Extremities: Bilateral lower extremities are without edema. Skin: Well perfused without any obvious rashes. Const: Vital Signs, click to edit/add: Vital Signs - 24 hr 10/12/24 08:21 10/12/24 09:02 Temperature 100 F H Pulse Rate 97 Pulse Rate [Right Pulse Oximeter] 105 H Respiratory Rate 18 16 Blood Pressure 105/68 Blood Pressure [Ri ght Upper Arm] 101/64 Pulse Oximetry 99 100 Oxygen Delivery Me thod Room Air Course Course ED Course: Differential diagnoses includes viral syndrome, dysmenorrhea, ectopic , UTI. test is negative, pelvic ultrasound unremarkable. CBC shows mild pancytopenia of unclear etiology which is new, LFTs are minimally elevated, CRP elevated at 3.5. Remainder of blood work unremarkable. Vital Signs Vital signs: Initial Vital Signs Temperature 100 F H 10/12/24 08:21 Temperature Source Temporal Artery Scan 10/12/24 08:21 Pulse Rate 105 H 10/12/24 08:21 Pulse Rhythm Regular 10/12/24 08:21 Pulse Strength 3+ Normal 10/12/24 08:21 Respiratory Rate 18 10/12/24 08:21 Blood Pressure 101/64 10/12/24 08:21 Blood Pressure Mean 76 10/12/24 08:21 Blood Pressure Position Sitting 10/12/24 08:21 Pulse Oximetry 99 10/12/24 08:21 Oxygen Delivery Method Room Air 10/12/24 08:21 Vital Signs Temperature 100 F H 10/12/24 08:21 Pulse Rate 105 H 10/12/24 08:21 Respiratory Rate 18 10/12/24 08:21 Blood Pressure 101/64 10/12/24 08:21 Pulse Oximetry 99 10/12/24 08:21 Oxygen Delivery Method Room Air 10/12/24 08:21 Temperature 100 F H 10/12/24 08:21 Pulse Rate 97 10/12/24 09:02 Respiratory Rate 16 10/12/24 09:02 Blood Pressure 105/68 10/12/24 09:02 Pulse Oximetry 100 10/12/24 09:02 Oxygen Delivery Method Room Air 10/12/24 08:21 Medical Decision Making MDM Narrative Medical decision making narrative: 24-year-old female with fever unclear etiology, mild pancytopenia and mildly elevated LFTs-all could be consistent with a viral infection. Patient is vital is stable at this time. Will continue treating her symptoms with Tylenol ibuprofen. Follow up with primary care in 48-72 hours for repeat laboratory investigations. Lab Data Lab results reviewed: Yes I reviewed the patient's lab results Labs: Lab Results 10/12/24 10/12/24 10/12/24 Range/Units 08:45 08:50 08:55 WBC 3.32 L (4.50-11.00) K/uL RBC 4.44 (4.00-5.20) m/uL Hgb 11.5 L (12.0-16.0) gm/dL Hct 34.6 (33.0-51.0) % MCV 78 L (80-100) fL MCH 26 (26-34) pg MCHC 33 (32-36) gm/dL RDW Coeff of Nelly 13.0 (11.5-15.5) % Plt Count 120 L (140-440) K/uL Neut % (Auto) 57.0 (42.0-72.0) % Lymph % (Auto) 36.4 (20-44) % [place] % (Auto) 5.7 (0.0-11.0) % Eos % (Auto) 0.0 (0.0-7.0) % Baso % (Auto) 0.6 (0.0-3.0) % Neut # (Auto) 1.90 (1.7-7.0) K/uL Lymph # (Auto) 1.20 (0.90-2.90) K/uL [place] # (Auto) 0.20 (0.00-0.90) K/UL Eos # (Auto) 0.00 (0.00-0.50) K/uL Baso # (Auto) 0.00 (0.00-0.30) K/uL Abs Immat Gran (auto) 0.00 (0.00-0.30) K/uL Imm/Tot Granulo (auto) 0.3 % Sodium 134 L (135-149) mmol/L Potassium 3.9 (3.6-5.1) mmol/L Chloride 102 (96-114) mmol/L Carbon Dioxide 24 (20-32) mmol/L Anion Gap 8 (7-15) mEq/L BUN 8 (5-24) mg/dL Creatinine 0.8 (0.5-1.5) mg/dL Estimated Creat Clear 96.73 Estimated GFR 105 ml/min Glucose 96 (60-115) mg/dL Lactate 0.6 (0.5-1.9) mmol/L Calcium 8.8 (8.4-10.6) mg/dL Total Bilirubin 0.9 (0.1-1.5) mg/dL Direct Bilirubin 0.2 (0.0-0.5) mg/dL AST 60 H (12-35) U/L ALT 52 H (4-35) U/L Alkaline Phosphatase 64 (40-150) U/L C-Reactive Protein 3.5 H (0.5-1.0) mg/dL Total Protein 7.3 (6.0-8.3) g/dL Albumin 4.5 (3.3-5.0) g/dL Urine Color Yellow (Yellow) Urine Appearance Clear (Clear) Urine pH 6.0 (5.0-8.5) Ur Specific [place] 1.020 (1.000-1.030) Urine Protein 1+ A (Negative) Urine Glucose (UA) Negative (Negative) Urine Ketones 1+ A (Negative) Urine Blood Trace-intact A (Negative) Urine Nitrite Negative (Negative) Urine Bilirubin 1+ A (Negative) Urine Urobilinogen 0.2 (0.2-1.0) Ur Leukocyte Esterase Negative (Negative) Urine RBC 0-2 (0-2) Urine WBC 5-10 A (0-5) Ur Squamous Epith Cells None (None-Few) Urine Bacteria None (None) Urine HCG, Qual Negative (Negative) SARS-CoV-2 (PCR) Negative SARS-CoV-2 (Negative) Monoscreen Negative (Negative) Influenza Type A (PCR) Negative PCR FLU A (Negative) Influenza Type B (PCR) Negative PCR FLU B (Negative) Imaging Data US - abdomen: Attestation: I have reviewed the pertinent imaging results. Radiologist's impression: TECHNIQUE: Ultrasound pelvis transabdominal and transvaginal for better assessment or to better visualize the endometrium. Real-time sonographic images with spectral and color Doppler imaging of the ovaries were obtained. COMPARISON: None FINDINGS: Uterus: 8.9 x 3.4 x 5.1 cm. Normal echotexture of the myometrium. No masses. Endometrium: Transvaginal imaging was performed to better evaluate the endometrium. Endometrial thickness measures 5.4 mm. No sign of endometrial mass or fluid. Right ovary measures 3.3 x 1.7 x 2.7 cm and left ovary measures 3.5 x 1.8 x 3.0 cm. No ovarian or adnexal masses. Normal arterial and venous blood flow is demonstrated in both ovaries. Cul-de-sac: Minimal free fluid. IMPRESSION: 1. Unremarkable pelvic sonogram Discharge Plan Discharge Clinical Impression: Fever, Dysmenorrhea Patient Disposition: Home, Self-Care Condition: Stable Additional Instructions: Blood work today was minimally abnormal, consistent with a probable viral infection. Would recommend following up with your primary care provider in 48- 72 hours to have repeat blood work done-specifically a complete blood cell count and liver function testing. Ultrasound today did not reveal any abnormalities, no evidence of - ectopic or otherwise. Continue using ibuprofen or Tylenol as needed/as directed. Prescriptions: No Action escitalopram oxalate 10 mg tablet 10 mg PO QDAY Qty: 90 3RF Follow Up/Referrals: Debra Ravi PA-C [Primary Care Provider, Family Practice] Stand Alone Forms: [facility] Info Instructions
[2024-10-12 09:00] LABS: Lactate* 0.6 mmol/L (0.5-1.9)
[2024-10-12 09:01] LABS: Basophils Percent Auto 0.6 % (0.0-3.0); Hematocrit 34.6 % (33.0-51.0); Hemoglobin* 11.5 gm/dL (12.0-16.0); Immature Granulocytes Pct Auto 0.3 %; Lymphocytes Percent Auto 36.4 % (20-44); Mean Corpuscular HGB Conc 33 gm/dL (32-36); Mean Corpuscular Hemoglobin 26 pg (26-34); Mean Corpuscular Volume 78 fL (80-100); Monocytes Percent Auto 5.7 % (0.0-11.0); Platelet Count* 120 K/uL (140-440); Red Blood Count 4.44 m/uL (4.00-5.20); White Blood Count* 3.32 K/uL (4.50-11.00)
[2024-10-12 09:01] LABS: Appearance Urine Clear (Clear); Bilirubin Urine 1+ (Negative); Blood Urine Trace-intact (Negative); Color Urine Yellow (Yellow); Glucose Urine Negative (Negative); Ketones Urine 1+ (Negative); Leukocyte Esterase Urine Negative (Negative); Nitrite Urine Negative (Negative); Protein Urine 1+ (Negative); Urobilinogen Urine 0.2 (0.2-1.0)
[2024-10-12 09:02] VITALS: BP 105/68; PULSE 97; RESP 16; O2SAT 100
[2024-10-12 09:10] LABS: Ur HCG Qualitative* Negative (Negative)
[2024-10-12 09:12] LABS: Slide Review Reflex Yes
[2024-10-12 09:15] LABS: RBC Urine 0-2 (0-2)
[2024-10-12 09:15] LABS: Albumin* 4.5 g/dL (3.3-5.0); Chloride* 102 mmol/L (96-114); Sodium* 134 mmol/L (135-149)
[2024-10-12 09:16] LABS: Potassium* 3.9 mmol/L (3.6-5.1)
[2024-10-12 09:18] LABS: Alanine Aminotransferase* 52 U/L (4-35); Alkaline Phosphatase* 64 U/L (40-150); Anion Gap 8 mEq/L (7-15); Aspartate Amino Transferase* 60 U/L (12-35); Bilirubin Direct* 0.2 mg/dL (0.0-0.5); Bilirubin Total* 0.9 mg/dL (0.1-1.5); Blood Urea Nitrogen* 8 mg/dL (5-24); Carbon Dioxide* 24 mmol/L (20-32); Creatinine* 0.8 mg/dL (0.5-1.5); Est. Creatinine Clearance* 96.73; Estimated Glomerular Filt Rate 105 ml/min; Total Protein* 7.3 g/dL (6.0-8.3)
[2024-10-12 09:19] LABS: Calcium* 8.8 mg/dL (8.4-10.6); Glucose* 96 mg/dL (60-115)
[2024-10-12 09:21] LABS: C Reactive Protein* 3.5 mg/dL (0.5-1.0)
[2024-10-12 09:27] LABS: Mono Screen* Negative (Negative)
[2024-10-12 09:50] LABS: PCR FLU A Negative PCR FLU A (Negative); PCR FLU B Negative PCR FLU B (Negative); SARS PCR* Negative SARS-CoV-2 (Negative)
[2024-10-12 10:03] LABS: Slide Review Acceptable Review (Acceptable)
[2024-10-12 10:25] VITALS: BP 101/64; PULSE 97; RESP 16; TEMP 37.7
== END 2024-10-12 10:25 | disposition home or self-care (01) ==
PROVIDERS: Emergency Provider Family Medicine; PCP Physician Assistant Medical
DX: R50.9 Fever, unspecified (principal); N94.6 Dysmenorrhea, unspecified
CPT/HCPCS: 36415; 76830; 76856; 80048; 80076; 81001; 81025; 83605; 85025; 86140; 86308; 87086; 87631; 93976; 99284

== ENCOUNTER 2024-10-14 14:37 | Outpatient (CLI) | payer OTHER, SELFPAY | END 2024-10-14 14:38 | disposition home or self-care (01) | PROVIDERS: PCP Physician Assistant Medical; Visit Provider Physician Assistant Medical | DX: R74.8 Abnormal levels of other serum enzymes (principal); E66.9 Obesity, unspecified; R50.9 Fever, unspecified | CPT/HCPCS: 84450; 84460 ==

== ENCOUNTER 2024-10-20 14:27 | Outpatient (CLI) | payer OTHER, SELFPAY ==
--- NOTE | 2024-10-20 15:00 | CRLHL7_ITS ---
For Patients: As a result of the Century Cures Act, medical imaging exams and procedure reports are released immediately into your electronic medical record. You may view this report before your referring provider. If you have questions, please contact your health care provider. Indication: DYSMENORRHEA, ELEVATED LFT, LOW PLATELET, MID ABD CRAMPING, FEVERS Technique: CT Abdomen/Pelvis 79CC ISOVUE 370 intravenous contrast Please note that all CT scans at this facility use dose modulation, iterative reconstruction, and/or weight-based dosing when appropriate to reduce radiation dose to as low as reasonably achievable. Comparison: Pelvic ultrasound 10/12/2024 Findings: Lung bases are clear. There is mild decreased attenuation of the hepatic parenchyma with some relative sparing centrally. The liver measures 18.3 cm. The spleen measures 13.7 cm. Normal adrenal glands, kidneys and ureters. Normal pancreas. Gallbladder incompletely distended. Unremarkable stomach. No hiatal hernia. No bowel obstruction or free air. Moderate pelvic free fluid. This is considered physiologic. Normal ovaries and uterus. Bladder normal. No adenopathy. The osseous structures are within normal limits. Normal appendix. Impression: Mild hepatosplenomegaly with mild hepatic steatosis. Remainder unremarkable. Please note that all CT scans at this facility use dose modulation, iterative reconstruction, and/or weight-based dosing when appropriate to reduce radiation dose to as low as reasonably achievable. Dictated by Good Weeks MD @ 10/21/2024 10:17:35 AM (Electronically Signed)
--- OUTSIDE RECORDS SUMMARY | 2024-10-21 00:41 | XMS_ITS | Clinical Summary ---
Author Organization [employer] [facility] [employer] Address [address] [place] [id number] Care Team Providers Care Police Dispatcher Name Role Phone [facility] Provi laine [place], [facility] Unavailable Unava ilable Allergies No known [...] Procedure Name Priority Date/Time Associated Diagnosis Comments GRAPHIC ARTS TECHNICIAN THIN PREP PAP SCREEN IMAGED Routine 08/25/2021 9:15 AM CDT from Last 3 Months or Most Recently Relevant to Health Maintenance Results * GRAPHIC ARTS TECHNICIAN THIN PREP PAP SCREEN IMAGED (08/25/2021 9:15 AM CDT) Case Report Gynecologic Cytology Report Case: [id number] Authorizing Provider: Debra Ravi PA-C Collected: 08/25/2021 0915 Ordering Location: [facility] Received: 08/28/2021 0803 First Screen: Magdalena Salvador Specimen: GRAPHIC ARTS TECHNICIAN ThinPrep Vial Screening, Cervical/Vaginal 09/07/2021 12:20 PM CDT [facility] [employer] [facility] INTERPRETATION/ RESULT NEGATIVE FOR INTRAEPITHELIAL LESION OR MALIGNANCY (NIL) (none) 09/07/2021 12:20 PM CDT [facility] [employer] [facility] at 1219 CDT SPECIMEN ADEQUACY Satisfactory for evaluation No endocervical component seen 09/07/2021 12:20 PM CDT [facility] [employer] [facility] HPV REQUEST HPV if ASCUS 09/07/2021 12:20 PM CDT [facility] [employer] [facility] Date of LMP 08/10/2021 09/07/2021 12:20 PM CDT [facility] [employer] [facility] Additional Information 09/07/2021 12:20 PM CDT [facility] [employer] [facility] Comment: Interpreted at [facility] Central Laboratory - [address] [place] [address], [place] [address] Automated Review Successful 09/07/2021 12:20 PM CDT [facility] [employer] [facility] Comment:Specimen processed s uccessfully by automated senior geotechnical engineer device, ThinPrep Imaging System, [employer] Note The pap test is a [...] Debra Ravi PA-C PATHOLOGY/CYTOLOGY Final Resu lt [facility]ORY [address] [place] [address], from Last 3 Months or Most Recently Relevant to Health Maintenance Insurance [employer] [employer] [facility] [employer] [place] Care Teams Police Dispatcher Relationship Specialty Start Date End Date [facility] [place] [facility] [place] [address] [address] [place] [address] PCP - General 11/20/23 [place], *Family Health 11/20/23
== END 2024-10-20 14:28 | disposition home or self-care (01) ==
LOC: CT 14:28
PROVIDERS: PCP Physician Assistant Medical; Visit Provider Physician Assistant Medical
DX: N94.6 Dysmenorrhea, unspecified (principal); R16.2 Hepatomegaly with splenomegaly, not elsewhere classified; K76.0 Fatty (change of) liver, not elsewhere classified; R50.9 Fever, unspecified; R74.8 Abnormal levels of other serum enzymes
CPT/HCPCS: 74177; 84450; 84460; Q9967

== ENCOUNTER 2024-10-27 10:48 | Outpatient (CLI) | payer OTHER, SELFPAY | END 2024-10-27 10:49 | disposition home or self-care (01) | LOC: FRMREF 10:49 | PROVIDERS: PCP Physician Assistant Medical; Visit Provider Physician Assistant Medical | DX: R74.8 Abnormal levels of other serum enzymes (principal); N39.0 Urinary tract infection, site not specified; R10.9 Unspecified abdominal pain; Z11.59 Encounter for screening for other viral diseases | CPT/HCPCS: 80053; 84450; 84460; 86705; 86706; 86708; 86803; 87086; 87340 ==

== ENCOUNTER 2025-02-09 09:00 | Outpatient (CLI) | payer OTHER, SELFPAY ==
--- NOTE | 2025-02-09 09:15 | CRLHL7_ITS ---
For Patients: As a result of the Century Cures Act, medical imaging exams and procedure reports are released immediately into your electronic medical record. You may view this report before your referring provider. If you have questions, please contact your health care provider. OBSTETRICAL ULTRASOUND TRANSVAGINAL CLINICAL INDICATION: Dating and viability. Surgery: LMP: 12/11/2024 GREGG by LMP: 09/17/2025 Gestational age: 8 weeks 4 days Previous ultrasound: No TECHNIQUE: Real-time velazquez-scale imaging of the fetus was performed transvaginal. Transvaginal imaging was performed for better visualization of the endometrium and ovaries. FINDINGS: CRL: 2.27 cm, 9 weeks 0 days; GREGG 09/14/2025 heart rate: 173 BPM Gestational sac: 3.1 cm, appears within normal limits Yolk sac: 4.7 mm, appears within normal limits Right ovary: 3.0 x 1.3 x 1.4 cm Left ovary: 3.0 x 3.1 x 2.8 cm, CL IMPRESSION: 1. Single living intrauterine measures 9 weeks 0 days with sonographic due date of 09/14/2025. 2. Corpus luteal cyst of left ovary measures 2.5 cm. GOOD PINA M.D. Diagnostic Radiologist [email or web address] Transcribed: 10:[address]/Dictated by: Good Pina MD @ 02/09/2025 10:32:00 AM (Electronically Signed)
== END 2025-02-09 09:01 | disposition home or self-care (01) ==
LOC: US 09:01
PROVIDERS: PCP Physician Assistant Medical; Visit Provider Physician Assistant
DX: O34.81 Maternal care for other abnormalities of pelvic organs, first trimester (principal); N83.12 Corpus luteum cyst of left ovary; Z3A.09 9 weeks gestation of pregnancy
CPT/HCPCS: 76817; 82565; 82570; 83021; 84156; 84450; 84460; 84520; 86592; 86703; 86704; 86706; 86762; 86787; 86803; 86850; 86900; 86901; 87086; 87340; 87491; 87591

== ENCOUNTER 2025-02-11 | Outpatient (CLI) | payer OTHER, SELFPAY | END 2025-02-11 00:01 | disposition home or self-care (01) | LOC: NFLDREF 02-16 10:12 | PROVIDERS: PCP Physician Assistant Medical; Referring Provider Physician Assistant Medical; Visit Provider Physician Assistant | DX: Z34.91 Encounter for supervision of normal pregnancy, unspecified, first trimester (principal) | CPT/HCPCS: 82570; 84156 ==